=== PATIENT | female | born 1940 | race Caucasian/White ===

== ENCOUNTER 2017-01-15 14:45 | Emergency (ER) | payer MEDICARE, BC ==
--- NOTE | 2017-01-15 15:26 | ED ---
Headache HPI - General Chief Complaint: Headache Stated Complaint: Neck/Head pain Time Seen by Provider: 01/15/17 15:15 Source: patient Mode of arrival: ambulatory Limitations: no limitations - History of Present Illness Initial Comments: This is a 68-year-old female who states she's had one month of pain in her neck and radiates up into her head. It is sharp in nature with movement at 7-8/10 in severity at rest it's less than that. She also complains of some fullness her left facial region and inability to breathe out of her left nostril she also complains of a machinery type noise in her left ear. She denies any fevers chills nausea vomiting sweats or other symptoms at this time she has had lumbar surgery in the past. She denies any focal deficits to her upper or lower extremities any blurry vision. MD Complaint: headache, other - Related Data Home Medications Medication Instructions Recorded Confirmed ALPRAZolam [Xanax] 0.5 mg PO BID PRN 01/15/17 01/15/17 Baclofen [Lioresal] 5 mg PO TID PRN 01/15/17 01/15/17 Cetirizine HCl [Zyrtec] 10 mg PO DAILY PRN 01/15/17 01/15/17 Cholecalciferol [Vitamin D3] 1,000 unit PO DAILY 01/15/17 01/15/17 Citalopram Hydrobromide [CeleXA] 20 mg PO QAM 01/15/17 01/15/17 Citalopram Hydrobromide [CeleXA] 40 mg PO HS 01/15/17 01/15/17 Docusate [Colace] 100 mg PO BID 01/15/17 01/15/17 Famotidine [Pepcid] 40 mg PO HS 01/15/17 01/15/17 Fluticasone Nasal [place] [Flonase 2 spr EA NOSTRIL DAILY 01/15/17 01/15/17 Nasal [place]] Levothyroxine Sodium [Synthroid] 88 mcg PO QAM 01/15/17 01/15/17 [place]-3 Fatty Acids [[place]-3] 1,000 mg PO Q48H 01/15/17 01/15/17 Polyethylene Glycol 3350 [Miralax] 17 gm PO BID PRN 01/15/17 01/15/17 Previous Rx's Medication Instructions Recorded Ketorolac [Toradol] 10 mg PO Q6HR #20 tab 01/15/17 Allergies Allergy/AdvReac Type Severity Reaction Status Date / Time amoxicillin Allergy Anaphylaxis Verified 01/15/17 15:52 amylase [From Creon] AdvReac Constipatio Verified 01/15/17 15:52 n clindamycin [From Cleocin] AdvReac Constipatio Verified 01/15/17 15:52 n fenofibrate [From Tricor] AdvReac Constipatio Verified 01/15/17 15:52 n gabapentin AdvReac Vertigo Verified 01/15/17 15:52 lansoprazole [From Prevacid] AdvReac Diarrhea Verified 01/15/17 15:52 lipase [From Creon] AdvReac Constipatio Verified 01/15/17 15:52 n morphine AdvReac Nausea & Verified 01/15/17 15:52 Vomiting pantoprazole [From Protonix] AdvReac Constipatio Verified 01/15/17 15:52 n protease [From Creon] AdvReac Constipatio Verified 01/15/17 15:52 n rosuvastatin [From Crestor] AdvReac Muscle Pain Verified 01/15/17 15:52 tramadol [From Ultram] AdvReac Constipatio Verified 01/15/17 15:52 n Review of Systems ROS Statement: Those systems with pertinent positive or pertinent negative responses have been documented in the HPI. ROS Other: All systems not noted in ROS Statement are negative. Past Medical History Past Medical History: Fibromyalgia History of Any Multi-Drug Resistant Organisms: None Reported Past Psychological History: No Psychological Hx Reported Smoking Status: Never smoker Past Alcohol Use History: None Reported Past Drug Use History: None Reported General Exam - General Exam Comments Initial Comments: This is a well-developed well-nourished awake alert oriented 3 female Limitations: no limitations General appearance: alert, in no apparent distress Head exam: Present: atraumatic, normocephalic, normal inspection, other (No tenderness on palpation of the scalp) Eye exam: Present: normal appearance, PERRL, EOMI. Absent: scleral icterus, conjunctival injection, periorbital swelling ENT exam: Present: normal exam, mucous membranes moist, TM's normal bilaterally , other (Boggy swollen nasal mucosa) Neck exam: Present: normal inspection, tenderness (Paraspinous tenderness palpation no mid spinal tenderness.). Absent: meningismus, lymphadenopathy Respiratory exam: Present: normal lung sounds bilaterally. Absent: respiratory distress, wheezes, rales, rhonchi, stridor Cardiovascular Exam: Present: regular rate, normal rhythm, normal heart sounds. Absent: systolic murmur, diastolic murmur, rubs, gallop, clicks GI/Abdominal exam: Absent: distended, tenderness, guarding, rebound, rigid Extremities exam: Present: normal inspection, full ROM, normal capillary refill. Absent: tenderness, pedal edema, joint swelling, calf tenderness Back exam: Present: normal inspection Neurological exam: Present: alert, oriented X3, CN II-XII intact Psychiatric exam: Present: normal affect, normal mood Skin exam: Present: warm, dry, intact, normal color. Absent: rash Course Vital Signs 01/15/17 14:50 Temperature 97.2 F L Pulse Rate 78 Respiratory 20 Rate Blood Pressure 175/72 O2 Sat by Pulse 100 Oximetry Medical Decision Making - Medical Decision Making I did discuss the findings with the patient the family member that was present. The presentation is consistent with a radicular manifestation for her headache. She'll be placed on a short course of anti-inflammatories she is a follow-up with her doctor and return when necessary warm compresses were also recommended - Radiology Data Radiology results: report reviewed (I did review the imaging and reports evidence of degenerative change no acute findings on the CT of the head and sinuses. There is a deviated septum noted.), image reviewed Disposition Clinical Impression: Cervical radiculopathy, Headache Disposition: HOME SELF-CARE Condition: Good Instructions: Acute Headache (ED), Cervical Radiculopathy (ED), Neck Pain (ED) Prescriptions: Ketorolac [Toradol] 10 mg PO Q6HR #20 tab
--- NOTE | 2017-01-15 16:21 | CT ---
EXAMINATION TYPE: CT sinus wo con DATE OF EXAM: 01/15/2017 4:08 PM COMPARISON: NONE HISTORY: Pt states of congestion with head and neck pain. CT DLP: 1824.9 mGycm CONTRAST: None The paranasal sinuses are examined in the axial plane at 2 mm thick sections. Reconstructed images i n the coronal plane were obtained. There is dental amalgam scatter artifact The maxillary sinuses are clear. The ethmoid air cells are clear. The sphenoid sinuses are clear. The frontal sinuses are clear. The septum is evaluated. There is septal deviation to the right. Right septal spur is present. The ostiomeatal units are patent. There is a left erika bullosa. Maxillary spine appears intact. IMPRESSIONS: 1. No acute paranasal sinus abnormality. 2. Right septal deviation and spurring.
--- NOTE | 2017-01-15 16:25 | CT ---
EXAMINATION TYPE: CT brain cspine wo con DATE OF EXAM: 01/15/2017 4:08 PM COMPARISON: NONE HISTORY: Pt states of congestion with head and neck pain. CT DLP: 1824.9 mGycm, Automated exposure control for dose reduction was used. CONTRAST: None CT of the brain is performed utilizing 3 mm thick sections through the posterior fossa and 3 mm thick sections through the remaining calvarium. Study is performed within 24 hours of arrival to the hospital. No abnormal hyperdensity is present to suggest an acute intracranial hemorrhage. No mass lesion is evident. No acute infarcts are evident. Minimal periventricular white matter hypodensity may be present alan tible with microvascular ischemic changes. Ventricles and sulci are appropriate for the patient age. Paranasal sinuses and mastoid air cells within the [id number] are clear. IMPRESSIONS: 1. No acute intracranial process. CT cervical spine. COMPARISON: None CT of the cervical spine is performed in the axial plane at 2 mm thick sections. Reconstructed image s in the coronal, and sagittal plane are reviewed on the computer. No acute fractures are evident. Vertebral body alignment is normal. Disc heights are preserved. Vertebral body heights are preserved. No spinal canal stenosis is evident. C5-6 foraminal narrowing from uncovertebral joint hypertrophy as well as some facet hypertrophy is pr esent to a moderate degree. Some milder foraminal narrowing at C6-7 may be present. No acute osseous abnormality is evident. IMPRESSIONS: 1. Mild foraminal narrowing due to uncovertebral joint hypertrophy lower cervical spine
[2017-01-15 17:25] VITALS: BP 151/66; PULSE 61; RESP 18; TEMP 98.6
== END 2017-01-15 17:20 | disposition home or self-care (01) ==
LOC: EC 14:45
DX: M54.12 Radiculopathy, cervical region (principal); R51 Headache; M79.7 Fibromyalgia; Z79.51 Long term (current) use of inhaled steroids; Z79.899 Other long term (current) drug therapy; Z88.0 Allergy status to penicillin
CPT/HCPCS: 70450; 70486; 72125; 99284

== ENCOUNTER → 2017-03-02 | Outpatient (CLI) | payer MEDICARE, BC ==
--- NOTE | 2017-03-02 13:43 | CT ---
EXAMINATION TYPE: CT sinus wo con DATE OF EXAM: 03/02/2017 12:15 PM COMPARISON: NONE HISTORY: Chronic sinusitis CT DLP: 642.5 mGycm CONTRAST: 0 mL of Omnipaque 300 The paranasal sinuses are examined in the axial plane at 2 mm thick sections. Reconstructed images i n the coronal plane were obtained. The maxillary sinuses are clear. The ethmoid air cells are clear. The sphenoid sinuses are clear. The frontal sinuses are clear. The septum is evaluated. There is septal deviation to the right. The right septal spur is noted. Lef t erika bullosa is present. The ostiomeatal units are patent. Mild hyperostosis frontalis internus is present. IMPRESSIONS: 1. Septal deviation.
== END ==
LOC: RADCTMAIN 10:03
PROVIDERS: ATTEND Otolaryngology
DX: J34.2 Deviated nasal septum (principal)
CPT/HCPCS: 70486

== ENCOUNTER 2017-03-09 00:43 | Emergency (ER) | payer MEDICARE, BC ==
[2017-03-09 00:50] VITALS: RESP 18
--- NOTE | 2017-03-09 02:20 | ED ---
General Adult HPI - General Chief complaint: Nausea/Vomiting/Diarrhea Stated complaint: Poss Med Reaction Time Seen by Provider: 03/09/17 01:03 Source: patient, family, RN notes reviewed Mode of arrival: ambulatory Limitations: no limitations - History of Present Illness Initial comments: 76-year-old female presents to the emergency department with a chief complaint of medication side effect. Patient states that she started Valtrex today. Patient states that she's been having nausea. The patient does not know why she was placed on Valtrex. Patient states she hasn't had any fevers or chills. Patient denies any cough cold runny nose. Patient states just have nausea and her throat feels dry. Patient states she was concerned due to her symptoms so she thought that she should be evaluated.Patient denies any recent fever, chills, shortness of breath, chest pain, back pain, abdominal pain, vomiting, numbness or tingling, dysuria or hematuria, constipation or diarrhea, headaches or visual changes, or any other current symptoms. - Related Data Home Medications Medication Instructions Recorded Confirmed ALPRAZolam [Xanax] 0.5 mg PO BID PRN 01/15/17 03/09/17 Baclofen [Lioresal] 5 mg PO TID PRN 01/15/17 03/09/17 Cetirizine HCl [Zyrtec] 10 mg PO DAILY PRN 01/15/17 03/09/17 Cholecalciferol [Vitamin D3] 1,000 unit PO DAILY 01/15/17 03/09/17 Citalopram Hydrobromide [CeleXA] 20 mg PO QAM 01/15/17 03/09/17 Citalopram Hydrobromide [CeleXA] 40 mg PO HS 01/15/17 03/09/17 Docusate [Colace] 100 mg PO BID 01/15/17 03/09/17 Famotidine [Pepcid] 40 mg PO HS 01/15/17 03/09/17 Fluticasone Nasal [place] [Flonase 2 spr EA NOSTRIL DAILY 01/15/17 03/09/17 Nasal [place]] Levothyroxine Sodium [Synthroid] 88 mcg PO QAM 01/15/17 03/09/17 [place]-3 Fatty Acids [[place]-3] 1,000 mg PO Q48H 01/15/17 03/09/17 Polyethylene Glycol 3350 [Miralax] 17 gm PO BID PRN 01/15/17 03/09/17 valACYclovir HCL [Valtrex] 1,000 mg PO Q8HR 03/09/17 03/09/17 Previous Rx's Medication Instructions Recorded Ketorolac [Toradol] 10 mg PO Q6HR #20 tab 01/15/17 Allergies Allergy/AdvReac Type Severity Reaction Status Date / Time amoxicillin Allergy Anaphylaxis Verified 03/09/17 00:50 amylase [From Creon] AdvReac Constipatio Verified 03/09/17 00:50 n clindamycin [From Cleocin] AdvReac Constipatio Verified 03/09/17 00:50 n fenofibrate [From Tricor] AdvReac Constipatio Verified 03/09/17 00:50 n gabapentin AdvReac Vertigo Verified 03/09/17 00:50 lansoprazole [From Prevacid] AdvReac Diarrhea Verified 03/09/17 00:50 lipase [From Creon] AdvReac Constipatio Verified 03/09/17 00:50 n morphine AdvReac Nausea & Verified 03/09/17 00:50 Vomiting pantoprazole [From Protonix] AdvReac Constipatio Verified 03/09/17 00:50 n protease [From Creon] AdvReac Constipatio Verified 03/09/17 00:50 n rosuvastatin [From Crestor] AdvReac Muscle Pain Verified 03/09/17 00:50 tramadol [From Ultram] AdvReac Constipatio Verified 03/09/17 00:50 n Review of Systems ROS Statement: Those systems with pertinent positive or pertinent negative responses have been documented in the HPI. ROS Other: All systems not noted in ROS Statement are negative. Past Medical History Past Medical History: Fibromyalgia, Hyperlipidemia, Thyroid Disorder Additional Past Medical History / Comment(s): anxiety, neck History of Any Multi-Drug Resistant Organisms: None Reported Past Surgical History: Back Surgery Past Psychological History: Anxiety Smoking Status: Never smoker Past Alcohol Use History: Occasional Past Drug Use History: None Reported General Exam - General Exam Comments Initial Comments: General: The patient is awake and alert, in no distress, and does not appear acutely ill. Eye: Pupils are equal, round and reactive to light, extra-ocular movements are intact; there is normal conjunctiva bilaterally. No signs of icterus. Ears, nose, mouth and throat: There are moist mucous membranes. Neck: The neck is supple, there is no tenderness. Cardiovascular: There is a regular rate and rhythm. No murmur, rub or gallop is appreciated. Respiratory: Lungs are clear to auscultation, respirations are non-labored, breath sounds are equal. No wheezes, stridor, rales, or rhonchi. Gastrointestinal: Soft, non-distended, non-tender abdomen without masses or organomegaly noted. There is no rebound or guarding present. No CVA tenderness. Bowel sounds are unremarkable. Back: There is no tenderness to palpation in the midline. There is no obvious deformity. No rashes noted. Musculoskeletal: Normal ROM, no tenderness, There is no pedal edema. There is no calf tenderness or swelling. Sensation intact. Pulses equal bilaterally 2+. Neurological: CN II-XII intact, There are no obvious motor or sensory deficits. Coordination appears grossly intact. Speech is normal. Skin: Skin is warm and dry and no rashes or lesions are noted. Psychiatric: Cooperative, appropriate mood & affect, normal judgment. Limitations: no limitations Course Vital Signs 03/09/17 00:46 Temperature 97 F L Pulse Rate 70 Respiratory 18 Rate Blood Pressure 183/88 O2 Sat by Pulse 99 Oximetry - Reevaluation(s) Reevaluation #1: 03/09/17 03:43 Patient is feeling better at this time. EKG Findings - EKG Comments: EKG Findings:: normal sinus rhythm 63 bpm, normal axis, no atopy, no S-T depressions or elevations, Medical Decision Making - Medical Decision Making 76-year-old male presents emergency Department what appears to be a medication side effect. This time we did draw other possibilities of causing the patient' s nausea did do appear to be negative. At this time we discussed patient's most likely having nausea which is a side effect with Valtrex. Cannot" reason for why the patient is on the Valtrex. We discussed that she needs to call her doctor and confirm that she should be taking this medication. We discussed return parameters and follow-up. Patient stated that she understood all questions have been answered. She will be discharged. - Lab Data Result diagrams: 03/09/17 02:10 03/09/17 02:10 Lab Results 04/03/09/17 03/09/17 Range/Units 02:10 02:10 02:10 WBC 4.0 (3.8-10.6) k/uL RBC 3.67 L (3.80-5.40) m/uL Hgb 11.3 L (11.4-16.0) gm/dL Hct 33.2 L (34.0-46.0) % MCV 90.5 (80.0-100.0) fL MCH 30.8 (25.0-35.0) pg MCHC 34.0 (31.0-37.0) g/dL RDW 12.8 (11.5-15.5) % Plt Count 228 (150-450) k/uL Neutrophils % (Manual) 37.0 % Lymphocytes % (Manual) 53.0 % Monocytes % (Manual) 7.0 % Eosinophils % (Manual) 2.0 % Basophils % (Manual) 1.0 % Neutrophils # (Manual) 1.5 (1.3-7.7) k/uL Lymphocytes # (Manual) 2.1 (1.0-4.8) k/uL Monocytes # (Manual) 0.3 (0-1.0) k/uL Eosinophils # (Manual) 0.1 (0-0.7) k/uL Basophils # (Manual) 0.0 (0-0.2) k/uL Nucleated RBCs 0 (0-0) /100 WBC Manual Slide Review Performed PT (9.0-12.0) sec INR (<1.1) APTT (22.0-30.0) sec Sodium 127 L (137-145) mmol/L Potassium 4.5 (3.5-5.1) mmol/L Chloride 97 L (98-107) mmol/L Carbon Dioxide 20 L (22-30) mmol/L Anion Gap 10 mmol/L BUN 15 (7-17) mg/dL Creatinine 0.70 (0.52-1.04) mg/dL Est GFR (MDRD) Af Amer >60 (>60 ml/min/1.73 sqM) Est GFR (MDRD) Non-Af >60 (>60 ml/min/1.73 sqM) Glucose 101 H (74-99) mg/dL Calcium 9.3 (8.4-10.2) mg/dL Magnesium 1.8 (1.6-2.3) mg/dL Total Bilirubin 0.4 (0.2-1.3) mg/dL AST 79 H (14-36) U/L ALT 116 H (9-52) U/L Alkaline Phosphatase 157 H (38-126) U/L Total Creatine Kinase 74 (30-135) U/L CK-MB (CK-2) 1.5 (0.0-2.4) ng/mL CK-MB (CK-2) Rel Index 2.0 Troponin I <0.012 (0.000-0.034) ng/mL Total Protein 7.0 (6.3-8.2) g/dL Albumin 4.2 (3.5-5.0) g/dL 03/09/17 Range/Units 02:10 WBC (3.8-10.6) k/uL RBC (3.80-5.40) m/uL Hgb (11.4-16.0) gm/dL Hct (34.0-46.0) % MCV (80.0-100.0) fL MCH (25.0-35.0) pg MCHC (31.0-37.0) g/dL RDW (11.5-15.5) % Plt Count (150-450) k/uL Neutrophils % (Manual) % Lymphocytes % (Manual) % Monocytes % (Manual) % Eosinophils % (Manual) % Basophils % (Manual) % Neutrophils # (Manual) (1.3-7.7) k/uL Lymphocytes # (Manual) (1.0-4.8) k/uL Monocytes # (Manual) (0-1.0) k/uL Eosinophils # (Manual) (0-0.7) k/uL Basophils # (Manual) (0-0.2) k/uL Nucleated RBCs (0-0) /100 WBC Manual Slide Review PT 10.5 (9.0-12.0) sec INR 1.0 (<1.1) APTT 25.3 (22.0-30.0) sec Sodium (137-145) mmol/L Potassium (3.5-5.1) mmol/L Chloride (98-107) mmol/L Carbon Dioxide (22-30) mmol/L Anion Gap mmol/L BUN (7-17) mg/dL Creatinine (0.52-1.04) mg/dL Est GFR (MDRD) Af Amer (>60 ml/min/1.73 sqM) Est GFR (MDRD) Non-Af (>60 ml/min/1.73 sqM) Glucose (74-99) mg/dL Calcium (8.4-10.2) mg/dL Magnesium (1.6-2.3) mg/dL Total Bilirubin (0.2-1.3) mg/dL AST (14-36) U/L ALT (9-52) U/L Alkaline Phosphatase (38-126) U/L Total Creatine Kinase (30-135) U/L CK-MB (CK-2) (0.0-2.4) ng/mL CK-MB (CK-2) Rel Index Troponin I (0.000-0.034) ng/mL Total Protein (6.3-8.2) g/dL Albumin (3.5-5.0) g/dL Disposition Clinical Impression: Medication side effect, Anemia, Elevated liver enzymes, Hyponatremia Disposition: HOME SELF-CARE Condition: Stable Instructions: Valacyclovir (By mouth) Additional Instructions: Please use medication as discussed. Please follow up with family doctor if symptoms have not improved over the next two days. Please return to the emergency room if your symptoms increase or worsen or for any other concerns. Referrals: Jaydon Mann MD [Primary Care Provider] - 1-2 days Time of Disposition: 03:43
[2017-03-09 02:23] LABS: Aty Lym Flag Slight; CH 31.3; CHCM 34.8; HCT 33.2 % (34.0-46.0); HGB 11.3 gm/dL (11.4-16.0); MCH 30.8 pg (25.0-35.0); MCV 90.5 fL (80.0-100.0); Mean Platelet Volume 6.9; RBC 3.67 m/uL (3.80-5.40); RDW 12.8 % (11.5-15.5); WBC (Perox) 3.83
[2017-03-09 02:32] LABS: Partial Thromboplastin Time 25.3 sec (22.0-30.0); Prothrombin Time 10.5 sec (9.0-12.0)
[2017-03-09 02:33] LABS: ALT 116 U/L (9-52); AST 79 U/L (14-36); Alkaline Phosphatase 157 U/L (38-126); Anion Gap 10 mmol/L; Blood Urea Nitrogen 15 mg/dL (7-17); Calcium 9.3 mg/dL (8.4-10.2); Carbon Dioxide 20 mmol/L (22-30); Chloride 97 mmol/L (98-107); Glucose 101 mg/dL (74-99); Magnesium 1.8 mg/dL (1.6-2.3); Non-African American GFR(MDRD) >60 (>60 ml/min/1.73 sqM); Potassium 4.5 mmol/L (3.5-5.1); Sodium 127 mmol/L (137-145); Total Bilirubin 0.4 mg/dL (0.2-1.3)
[2017-03-09 02:42] LABS: Creatine Kinase 74 U/L (30-135)
--- NOTE | 2017-03-09 02:59 | XR ---
EXAM: XR Chest, 2 Views CLINICAL HISTORY: Reason: Chest Pain TECHNIQUE: Frontal and lateral views of the chest. COMPARISON: No relevant prior studies available. FINDINGS: Lungs: Unremarkable. No consolidation. Pleural space: Unremarkable. No pneumothorax. Heart: Unremarkable. No cardiomegaly. Mediastinum: Unremarkable. Bones/joints: Multilevel degenerative disc changes. Osteopenia. IMPRESSION: No acute findings.
[2017-03-09 03:09] LABS: Add Differential Manual Differential
[2017-03-09 03:13] LABS: Creatine Kinase MB 1.5 ng/mL (0.0-2.4); Troponin I <0.012 ng/mL (0.000-0.034)
[2017-03-09 03:14] LABS: Manual Review Performed; Nucleated Red Blood Cells 0 /100 WBC (0-0); Total Cells Counted 100
[2017-03-09 04:00] VITALS: BP 144/69; PULSE 80; TEMP 98
== END 2017-03-09 04:00 | disposition home or self-care (01) ==
LOC: EC 00:43
DX: D64.9 Anemia, unspecified (principal); E87.1 Hypo-osmolality and hyponatremia; T37.5X5A Adverse effect of antiviral drugs, initial encounter; E07.9 Disorder of thyroid, unspecified; F41.9 Anxiety disorder, unspecified; Z79.899 Other long term (current) drug therapy; Z88.0 Allergy status to penicillin; Z88.5 Allergy status to narcotic agent; Z88.6 Allergy status to analgesic agent; Z88.8 Allergy status to other drugs, medicaments and biological substances
CPT/HCPCS: 36415; 71020; 80053; 82550; 82553; 83735; 84484; 85025; 85610; 85730; 93005; 99283

== ENCOUNTER → 2017-04-12 | Outpatient (CLI) | payer MEDICARE, BC ==
[2017-04-12 12:52] LABS: ALT 23 U/L (9-52); AST 23 U/L (14-36)
== END | disposition home or self-care (01) ==
LOC: LABWHC1 12:04
PROVIDERS: ATTEND Psychiatry & Neurology Neurology
DX: Z51.81 Encounter for therapeutic drug level monitoring (principal); Z79.899 Other long term (current) drug therapy
CPT/HCPCS: 36415; 84450; 84460

== ENCOUNTER → 2017-05-28 | Outpatient (CLI) | payer MEDICARE, BC | END | disposition home or self-care (01) | LOC: RADUSMAIN 14:58 | PROVIDERS: ATTEND Anesthesiology | DX: I73.9 Peripheral vascular disease, unspecified (principal) | CPT/HCPCS: 93923 ==

== ENCOUNTER → 2017-08-30 | Outpatient (CLI) | payer MEDICARE, BC ==
--- NOTE | 2017-08-30 11:54 | FL ---
EXAMINATION TYPE: FL barium swallow DATE OF EXAM: 08/30/2017 CLINICAL HISTORY: Dysphasia TECHNIQUE: A single contrast esophagram is performed utilizing air and barium. A total of 90 second s of fluoroscopic time was utilized during procedure. 7 images submitted. COMPARISON: None FINDINGS: The esophagus shows normal motility and emptying into the stomach. Small hiatal hernia note d with no evidence of stricture. No significant gastroesophageal reflux was seen during real time per formance of this study. IMPRESSION: 1. Small hiatal hernia with mild gastroesophageal reflux.
== END | disposition home or self-care (01) ==
LOC: RADFLWHC 10:41
PROVIDERS: ATTEND Pediatrics
DX: K21.9 Gastro-esophageal reflux disease without esophagitis (principal); K44.9 Diaphragmatic hernia without obstruction or gangrene; R13.10 Dysphagia, unspecified
CPT/HCPCS: 74220

== ENCOUNTER 2018-03-29 13:36 | Inpatient (IN) | payer MEDICARE, BC ==
[2018-03-29] MEDS ORDERED: SODIUM CHLORIDE 0.9% 1,000 ML IV ONE (13:44)
[2018-03-29] MEDS ORDERED: SODIUM CHLORIDE 0.9% 500 ML IV ONE (13:44)
[2018-03-29 14:07] LABS: Basophils % (A) 0 %; Eosinophils # (A) 0.1 k/uL (0-0.7); Eosinophils % (A) 1 %; HCT 34.2 % (34.0-46.0); HGB 11.8 gm/dL (11.4-16.0); Lymphocytes # (A) 0.6 k/uL (1.0-4.8); Lymphocytes % (A) 8 %; MCH 31.3 pg (25.0-35.0); MCHC 34.6 g/dL (31.0-37.0); MCV 90.7 fL (80.0-100.0); Mean Platelet Volume 7.5; Monocytes # (A) 0.3 k/uL (0-1.0); Monocytes % (A) 4 %; Neutrophils # (A) 6.7 k/uL (1.3-7.7); Neutrophils % (A) 87 %; Platelet Count 335 k/uL (150-450); RBC 3.77 m/uL (3.80-5.40); RDW 12.9 % (11.5-15.5); WBC 7.8 k/uL (3.8-10.6)
--- NOTE | 2018-03-29 14:09 | ED ---
Altered Mental Status HPI - General Chief Complaint: Altered Mental Status Stated Complaint: Weakness Time Seen by Provider: 03/29/18 13:36 Source: patient, RN notes reviewed Mode of arrival: EMS Limitations: no limitations, altered mental status - History of Present Illness Initial Comments: This is a 77-year-old female who is brought in by EMS for evaluation of some confusion also complains some left upper quadrant pain she paranasal 718 and drinking since yesterday also not taking her meds she states the medications were not correct. She denies any fevers chills sweats or other symptoms. Per paramedics patient was reported to be confused for them she was a and O 4 MD Complaint: confusion, other - Related Data Home Medications Medication Instructions Recorded Confirmed ALPRAZolam [Xanax] 0.5 mg PO BID PRN 01/15/17 03/09/17 Baclofen [Lioresal] 5 mg PO TID PRN 01/15/17 03/09/17 Cetirizine HCl [Zyrtec] 10 mg PO DAILY PRN 01/15/17 03/09/17 Cholecalciferol [Vitamin D3] 1,000 unit PO DAILY 01/15/17 03/09/17 Citalopram Hydrobromide [CeleXA] 20 mg PO QAM 01/15/17 03/09/17 Citalopram Hydrobromide [CeleXA] 40 mg PO HS 01/15/17 03/09/17 Docusate [Colace] 100 mg PO BID 01/15/17 03/09/17 Famotidine [Pepcid] 40 mg PO HS 01/15/17 03/09/17 Fluticasone Nasal [place] [Flonase 2 spr EA NOSTRIL DAILY 01/15/17 03/09/17 Nasal [place]] Levothyroxine Sodium [Synthroid] 88 mcg PO QAM 01/15/17 03/09/17 [place]-3 Fatty Acids [[place]-3] 1,000 mg PO Q48H 01/15/17 03/09/17 Polyethylene Glycol 3350 [Miralax] 17 gm PO BID PRN 01/15/17 03/09/17 valACYclovir HCL [Valtrex] 1,000 mg PO Q8HR 03/09/17 03/09/17 Previous Rx's Medication Instructions Recorded Ketorolac [Toradol] 10 mg PO Q6HR #20 tab 01/15/17 Allergies Allergy/AdvReac Type Severity Reaction Status Date / Time amoxicillin Allergy Anaphylaxis Verified 03/29/18 13:48 amylase [From Creon] AdvReac Constipatio Verified 03/29/18 13:48 n clindamycin [From Cleocin] AdvReac Constipatio Verified 03/29/18 13:48 n fenofibrate [From Tricor] AdvReac Constipatio Verified 03/29/18 13:48 n gabapentin AdvReac Vertigo Verified 03/29/18 13:48 lansoprazole [From Prevacid] AdvReac Diarrhea Verified 03/29/18 13:48 lipase [From Creon] AdvReac Constipatio Verified 03/29/18 13:48 n morphine AdvReac Nausea & Verified 03/29/18 13:48 Vomiting pantoprazole [From Protonix] AdvReac Constipatio Verified 03/29/18 13:48 n protease [From Creon] AdvReac Constipatio Verified 03/29/18 13:48 n rosuvastatin [From Crestor] AdvReac Muscle Pain Verified 03/29/18 13:48 tramadol [From Ultram] AdvReac Constipatio Verified 03/29/18 13:48 n Review of Systems ROS Statement: Those systems with pertinent positive or pertinent negative responses have been documented in the HPI. ROS Other: All systems not noted in ROS Statement are negative. Past Medical History Past Medical History: Fibromyalgia, GERD/Reflux, Hyperlipidemia, Thyroid Disorder Additional Past Medical History / Comment(s): anxiety, neck, "memory loss", degenerative disk disease, hearing loss, fibromyalgia, dysphagia, hypothyroid History of Any Multi-Drug Resistant Organisms: None Reported Past Surgical History: Back Surgery Past Psychological History: Anxiety Smoking Status: Never smoker Past Alcohol Use History: Occasional Past Drug Use History: None Reported General Exam - General Exam Comments Initial Comments: This is a well-developed well-nourished awake alert female Limitations: no limitations, altered mental status General appearance: alert, in no apparent distress Head exam: Present: atraumatic, normocephalic, normal inspection Eye exam: Present: normal appearance, PERRL, EOMI. Absent: scleral icterus, conjunctival injection, periorbital swelling ENT exam: Present: mucous membranes dry Neck exam: Present: normal inspection. Absent: tenderness, meningismus, lymphadenopathy Respiratory exam: Present: normal lung sounds bilaterally, other (She does demonstrate kyphosis) Cardiovascular Exam: Present: regular rate, normal rhythm, normal heart sounds. Absent: systolic murmur, diastolic murmur, rubs, gallop, clicks GI/Abdominal exam: Present: soft, normal bowel sounds. Absent: distended, tenderness, guarding, rebound, rigid Extremities exam: Present: full ROM, normal capillary refill, pedal edema. Absent: tenderness, calf tenderness Back exam: Present: full ROM, other (Ecchymosis is noted). Absent: tenderness, CVA tenderness (R), CVA tenderness (L), muscle spasm, paraspinal tenderness, vertebral tenderness, rash noted Neurological exam: Present: alert, oriented X3, CN II-XII intact Psychiatric exam: Present: normal affect, normal mood Skin exam: Present: warm, dry, intact, normal color. Absent: rash Course Vital Signs 03/29/18 13:38 Temperature 99.5 F Pulse Rate 90 Respiratory 18 Rate Blood Pressure 155/71 O2 Sat by Pulse 100 Oximetry - Reevaluation(s) Reevaluation #1: 03/29/18 14:18 Repeat EKG shows sinus rhythm of 95 with PACs WV interval 144 QRS duration 70 QT since QTC of 376/[address]-T wave configuration Reevaluation #2: 03/29/18 17:12 I did reevaluate patient several occasions no changes Medical Decision Making - Medical Decision Making Patient is awake and alert at this time her neighbors presently did initially find her she was having issues with some memory and confusion which seems to of resolved. It is unclear whether this is probably secondary to dehydration or if there was a TIA. Patient be admitted for evaluation - Lab Data Result diagrams: 03/29/18 13:55 03/29/18 15:55 Lab Results 03/29/18 03/29/18 03/29/18 Range/Units 13:55 13:55 14:19 WBC 7.8 (3.8-10.6) k/uL RBC 3.77 L (3.80-5.40) m/uL Hgb 11.8 (11.4-16.0) gm/dL Hct 34.2 (34.0-46.0) % MCV 90.7 (80.0-100.0) fL MCH 31.3 (25.0-35.0) pg MCHC 34.6 (31.0-37.0) g/dL RDW 12.9 (11.5-15.5) % Plt Count 335 (150-450) k/uL Neutrophils % 87 % Lymphocytes % 8 % Monocytes % 4 % Eosinophils % 1 % Basophils % 0 % Neutrophils # 6.7 (1.3-7.7) k/uL Lymphocytes # 0.6 L (1.0-4.8) k/uL Monocytes # 0.3 (0-1.0) k/uL Eosinophils # 0.1 (0-0.7) k/uL Basophils # 0.0 (0-0.2) k/uL PT 11.2 (9.0-12.0) sec INR 1.2 H (<1.2) APTT 24.6 (22.0-30.0) sec Sodium (137-145) mmol/L Potassium (3.5-5.1) mmol/L Chloride (98-107) mmol/L Carbon Dioxide (22-30) mmol/L Anion Gap mmol/L BUN (7-17) mg/dL Creatinine (0.52-1.04) mg/dL Est GFR (CKD-EPI)AfAm (>60 ml/min/1.73 sqM) Est GFR (CKD-EPI)NonAf (>60 ml/min/1.73 sqM) Glucose (74-99) mg/dL POC Glucose (mg/dL) 133 H (75-99) mg/dL POC Glu Copy Room Technician ID ShawnpRicardo Calcium (8.4-10.2) mg/dL Magnesium (1.6-2.3) mg/dL Total Bilirubin (0.2-1.3) mg/dL AST (14-36) U/L ALT (9-52) U/L Alkaline Phosphatase (38-126) U/L Total Creatine Kinase (30-135) U/L CK-MB (CK-2) (0.0-2.4) ng/mL CK-MB (CK-2) Rel Index Troponin I (0.000-0.034) ng/mL Total Protein (6.3-8.2) g/dL Albumin (3.5-5.0) g/dL TSH (0.465-4.680) mIU/L Urine Color Urine Appearance (Clear) Urine pH (5.0-8.0) Ur Specific [place] (1.001-1.035) Urine Protein (Negative) Urine Glucose (UA) (Negative) Urine Ketones (Negative) Urine Blood (Negative) Urine Nitrite (Negative) Urine Bilirubin (Negative) Urine Urobilinogen (<2.0) mg/dL Ur Leukocyte Esterase (Negative) Urine RBC (0-5) /hpf Urine WBC (0-5) /hpf Ur Squamous Epith Cells (0-4) /hpf Urine Bacteria (None) /hpf Hyaline Casts (0-2) /lpf Urine Mucus (None) /hpf Urine Opiates Screen (NotDetected) Ur Oxycodone Screen (NotDetected) Urine Methadone Screen (NotDetected) Ur Propoxyphene Screen (NotDetected) Ur Barbiturates Screen (NotDetected) U Tricyclic Antidepress (NotDetected) Ur Phencyclidine Scrn (NotDetected) Ur Amphetamines Screen (NotDetected) U Methamphetamines Scrn (NotDetected) U Benzodiazepines Scrn (NotDetected) Urine Cocaine Screen (NotDetected) U Marijuana (THC) Screen (NotDetected) 03/29/18 03/29/18 03/29/18 Range/Units 14:29 15:55 15:55 WBC (3.8-10.6) k/uL RBC (3.80-5.40) m/uL Hgb (11.4-16.0) gm/dL Hct (34.0-46.0) % MCV (80.0-100.0) fL MCH (25.0-35.0) pg MCHC (31.0-37.0) g/dL RDW (11.5-15.5) % Plt Count (150-450) k/uL Neutrophils % % Lymphocytes % % Monocytes % % Eosinophils % % Basophils % % Neutrophils # (1.3-7.7) k/uL Lymphocytes # (1.0-4.8) k/uL Monocytes # (0-1.0) k/uL Eosinophils # (0-0.7) k/uL Basophils # (0-0.2) k/uL PT (9.0-12.0) sec INR (<1.2) APTT (22.0-30.0) sec Sodium 143 (137-145) mmol/L Potassium 4.4 (3.5-5.1) mmol/L Chloride 106 (98-107) mmol/L Carbon Dioxide 19 L (22-30) mmol/L Anion Gap 18 mmol/L BUN 34 H (7-17) mg/dL Creatinine 1.70 H (0.52-1.04) mg/dL Est GFR (CKD-EPI)AfAm 33 (>60 ml/min/1.73 sqM) Est GFR (CKD-EPI)NonAf 28 (>60 ml/min/1.73 sqM) Glucose 105 H (74-99) mg/dL POC Glucose (mg/dL) (75-99) mg/dL POC Glu Copy Room Technician ID Calcium 9.3 (8.4-10.2) mg/dL Magnesium 2.1 (1.6-2.3) mg/dL Total Bilirubin 0.4 (0.2-1.3) mg/dL AST 35 (14-36) U/L ALT 34 (9-52) U/L Alkaline Phosphatase 75 (38-126) U/L Total Creatine Kinase 305 H (30-135) U/L CK-MB (CK-2) 4.2 H* (0.0-2.4) ng/mL CK-MB (CK-2) Rel Index 1.4 Troponin I 0.020 (0.000-0.034) ng/mL Total Protein 6.4 (6.3-8.2) g/dL Albumin 4.1 (3.5-5.0) g/dL TSH 2.890 (0.465-4.680) mIU/L Urine Color Yellow Urine Appearance Cloudy H (Clear) Urine pH 5.0 (5.0-8.0) Ur Specific [place] 1.015 (1.001-1.035) Urine Protein 1+ H (Negative) Urine Glucose (UA) Negative (Negative) Urine Ketones 1+ H (Negative) Urine Blood Small H (Negative) Urine Nitrite Negative (Negative) Urine Bilirubin 1+ H (Negative) Urine Urobilinogen <2.0 (<2.0) mg/dL Ur Leukocyte Esterase Large H (Negative) Urine RBC 8 H (0-5) /hpf Urine WBC 114 H (0-5) /hpf Ur Squamous Epith Cells 3 (0-4) /hpf Urine Bacteria Few H (None) /hpf Hyaline Casts 257 H (0-2) /lpf Urine Mucus Few H (None) /hpf Urine Opiates Screen Not Detected (NotDetected) Ur Oxycodone Screen Not Detected (NotDetected) Urine Methadone Screen Not Detected (NotDetected) Ur Propoxyphene Screen Not Detected (NotDetected) Ur Barbiturates Screen Not Detected (NotDetected) U Tricyclic Antidepress Not Detected (NotDetected) Ur Phencyclidine Scrn Not Detected (NotDetected) Ur Amphetamines Screen Not Detected (NotDetected) U Methamphetamines Scrn Not Detected (NotDetected) U Benzodiazepines Scrn Detected H (NotDetected) Urine Cocaine Screen Not Detected (NotDetected) U Marijuana (THC) Screen Not Detected (NotDetected) - EKG Data -: EKG Interpreted by Me EKG shows normal: sinus rhythm (Sinus rhythm with with a rate of 89 WV interval 142 QRS 74 QT since QTC 380/472 minimal voltage criteria for LVH some artifact is present) - Radiology Data Radiology results: report reviewed (I did review the imaging and reports no acute findings.), image reviewed Critical Care Time Critical Care Time: Yes Critical Care Time: 31 minutes of critical care time which was initial presentation with monitoring of the EMS run and discussed with paramedics history physical labs x-rays multiple re-evaluations patient discussion with the patient and her neighbor who was present discussed with the admitting physician admission orders and documentation of the above Disposition Clinical Impression: TIA (transient ischemic attack), Delirium due to general medical condition, Dehydration, Pyuria, Altered mental status Disposition: ADMITTED IP TO THIS [facility] Condition: Stable Referrals: Jaydon Mann MD [Primary Care Provider] - 1-2 days
[2018-03-29 14:37] LABS: Glucose,Whole Blood 133 mg/dL (75-99)
[2018-03-29 14:37] LABS: INR 1.2 (<1.2); Partial Thromboplastin Time 24.6 sec (22.0-30.0); Prothrombin Time 11.2 sec (9.0-12.0)
[2018-03-29 14:51] LABS: Appearance,Urine Cloudy (Clear); Bacteria,Urine Few /hpf; Bilirubin,Urine 1+ (Negative); Blood,Urine Small (Negative); Color,Urine Yellow; Glucose,Urine (UA) Negative (Negative); Hyaline Casts,Urine 257 /lpf (0-2); Ketones,Urine 1+ (Negative); Leukocyte Esterase,Urine Large (Negative); Mucus,Urine Few /hpf; Nitrite,Urine Negative (Negative); Protein,Urine 1+ (Negative); RBC,Urine 8 /hpf (0-5); Specific Gravity,Urine 1.015 (1.001-1.035); Squamous Epithelial Cell,Urine 3 /hpf (0-4); Urobilinogen,Urine <2.0 mg/dL (<2.0); WBC,Urine 114 /hpf (0-5)
[2018-03-29 14:54] LABS: Amphetamine Screen,Urine Not Detected (NotDetected); Benzodiazepines Screen,Urine Detected (NotDetected); Cocaine Screen,Urine Not Detected (NotDetected); Opiate Screen,Urine Not Detected (NotDetected); Phencyclidine Screen,Urine Not Detected (NotDetected); Urn Cannabinoid Scrn Not Detected (NotDetected)
[2018-03-29 14:55] LABS: Barbiturate Screen,Urine Not Detected (NotDetected); Methadone Screen, Urine Not Detected (NotDetected); Oxycodone Screen, Urine Not Detected (NotDetected); Tricyclic Antidepressant,Urine Not Detected (NotDetected)
--- NOTE | 2018-03-29 15:31 | CT ---
EXAMINATION TYPE: CT brain wo con DATE OF EXAM: 03/29/2018 COMPARISON: Prior head CT 01/15/2017 HISTORY: Confusion and weakness CT DLP: 1162.8 mGycm Automated exposure control for dose reduction was used. Helical imaging through the brain FINDINGS: No interval change. There is no hemorrhage or hydrocephalus. Cerebral vascular calcifications are pre sent. IMPRESSION: STABLE EXAM, NO ACUTE ABNORMALITY.
--- NOTE | 2018-03-29 15:41 | XR ---
EXAMINATION TYPE: XR chest 2V DATE OF EXAM: 03/29/2018 COMPARISON: Prior chest x-ray 03/09/2017 HISTORY: Altered mental status TECHNIQUE: Frontal and lateral views of the chest are obtained. FINDINGS: Patient is rotated. There are overlying cardiac leads. Heart size may be accentuated by te chnique. No evident pneumonia, pneumothorax, or pleural effusion. IMPRESSION: No acute cardiopulmonary process.
[2018-03-29 16:26] LABS: Albumin 4.1 g/dL (3.5-5.0); Calcium 9.3 mg/dL (8.4-10.2); Magnesium 2.1 mg/dL (1.6-2.3); Potassium 4.4 mmol/L (3.5-5.1); Total Bilirubin 0.4 mg/dL (0.2-1.3); Total Protein 6.4 g/dL (6.3-8.2)
[2018-03-29 16:37] LABS: Troponin I 0.02 ng/mL (0.000-0.034)
[2018-03-29 16:41] LABS: Creatine Kinase MB 4.2 ng/mL (0.0-2.4)
[2018-03-29] MEDS ORDERED: SODIUM CHLORIDE 0.9% 1,000 ML IV SCH (17:15)
[2018-03-29] MEDS ORDERED: cefTRIAXone IN SWFI 1,000 MG/10 ML SYRINGE IVP STA (17:19)
[2018-03-29] MEDS ORDERED: LORATADINE 10 MG TAB PO PRN (17:21)
[2018-03-29] MEDS ORDERED: BACLOFEN 10 MG TAB PO PRN (17:21)
[2018-03-29] MEDS ORDERED: NON-FORMULARY DRUG (Ketorolac 10 MG) PO SCH (18:00)
[2018-03-29 20:14] LABS: Glucose,Whole Blood 124 mg/dL (75-99)
[2018-03-29 22:11] VITALS: BMI 24.3
[2018-03-29] MEDS: FAMOTIDINE 20 MG TAB PO SCH (22:15)
[2018-03-29] MEDS: CITALOPRAM HYDROBROMIDE 20 MG TAB PO SCH (22:16)
[2018-03-29] MEDS ORDERED: POLYETHYLENE GLYCOL 3350 17 GM POWD.PACK PO PRN (23:16)
[2018-03-29] MEDS ORDERED: traMADol 50 MG TAB PO PRN (23:16)
[2018-03-29] MEDS: ALPRAZolam 0.5 MG TAB PO PRN (23:29)
[2018-03-29] MEDS ORDERED: ALPRAZolam 0.25 MG TAB PO PRN (23:32)
[2018-03-29] MEDS ORDERED: CALCIUM CARBONATE 500 MG CHEWABLE PO PRN (23:32)
[2018-03-29] MEDS ORDERED: NALOXONE 0.4 MG/ML 1 ML VIAL IV PRN (23:32)
[2018-03-29] MEDS ORDERED: MELATONIN 3 MG TABLET PO PRN (23:32)
[2018-03-29] MEDS ORDERED: ACETAMINOPHEN TAB 325 MG TAB PO PRN (23:32)
[2018-03-29] MEDS ORDERED: ONDANSETRON 4 MG/2 ML VIAL IVP PRN (23:32)
[2018-03-30] MEDS: GABAPENTIN 100 MG CAP PO SCH ×2 (00:23→21:29)
[2018-03-30] MEDS: SODIUM BICARBONATE TAB 650 MG TAB PO SCH ×4 (00:26→21:39)
[2018-03-30] MEDS: METOPROLOL TARTRATE 25 MG TAB PO SCH ×3 (00:27→21:39)
[2018-03-30] MEDS: LEVOTHYROXINE 88 MCG TAB PO SCH (06:19)
--- NOTE | 2018-03-30 06:32 | HP ---
HISTORY AND PHYSICAL DATE OF ADMISSION: 03/29/18 DATE OF SERVICE: 03/29/18. PRESENTING COMPLAINT: Weak, tired. HISTORY OF PRESENTING COMPLAINT: This is a very pleasant 37-year-old patient of Dr. Mann. Chronic stable medical conditions include fibromyalgia, GERD, hypertension, hypothyroid, anxiety. The patient presented for 3 days, feeling really weak, decreased appetite, tired, run down. The patient has some urinary frequency, found to have a roaring UTI in the ER, was given a dose of IV ceftriaxone. Denies any obvious fever. Patient also being worked up by Dr. Singh in the outpatient setting for vascular disease, but the patient did have a vascular study done by Dr. Dsouza and the patient seems to have a good vascular circulation. The patient does complain of numbness below the knee down to the feet. Some tenderness, tingling. REVIEW OF SYSTEMS: Constitutional: Tired. HEENT none. Respiratory none. Cardiovascular none. Gastrointestinal none. Genitourinary: Some incontinence. Dermatological as above. Lymphatics none. Psychiatry: Sometimes forgetful. Neurological as above. PAST MEDICAL HISTORY: Fibromyalgia, GERD, hyperlipidemia, rheumatoid arthritis, hypothyroid, anxiety, some memory loss, hearing loss, hypothyroid. PAST SURGICAL HISTORY: Back surgery. SOCIAL HISTORY: No smoking. Alcohol occasionally. Is a . Uses a cane. FAMILY HISTORY: Reviewed, noncontributory to presentation. HOME MEDICATIONS: 1. Singulair 10 mg daily. 2. Mucinex 600 mg p.o. b.i.d. p.r.n. 3. Synthroid 88 mcg a day. 4. Pepcid 40 mg q.h.s. 5. Celexa 20 mg in the morning, 40 at night. 6. MiraLAX 17 g b.i.d. p.r.n. 7. [place] 1 drop both eyes daily. 8. Vitamin D3 1000 units p.o. daily. 9. Zyrtec 10 mg p.o. daily p.r.n. 10.Tylenol 650 mg p.o. q.6h p.r.n. 11.Xanax 0.5 p.o. b.i.d. p.r.n. 12.Ultram 50 mg p.o. q.12 p.r.n. 13.Lasix 20 mg b.i.d. 14.Flonase 1 spray each nostril b.i.d. 15.Baclofen 10 mg p.o. t.i.d. p.r.n. ALLERGIES: AMOXICILLIN, AMYLASE, CLINDAMYCIN, TRICOR, GABAPENTIN, PREVACID, CREON, MORPHINE, PROTONIX, PRAVASTATIN, PROTEASE, CRESTOR, SIMVASTATIN, ULTRAM. Most of these she has had side effects as opposed to true allergy. PHYSICAL EXAMINATION: Vital signs on presentation temp 99.5, pulse 98, respiration 18, blood pressure 155/71, pulse ox 100% on room air. GENERAL APPEARANCE: Average built, sitting up somewhat anxious-appearing. Eyes: Pupils equal. Conjunctivae normal. HEENT: External appearance of nose and ears. Oral cavity normal. Neck JVD not raised. Mass not palpable. Respiratory effort normal. Lungs are clear. Cardiovascular: 1st and 2nd sounds normal. Minimal edema. ABDOMEN: Soft, nontender. Liver and spleen not palpable. Lymphatics: No lymph nodes palpable in the neck and axilla. PSYCHIATRY: Alert and oriented x3. Mood and affect anxious-appearing. Neurological: Pupils equal. Cranial nerves grossly intact. Power grossly intact. The patient has got hyperesthesia in the lower extremity from mid diallo down to the feet. The patient distal pulses are palpable. The patient also got an essential tremor. Musculoskeletal: Evidence of osteoarthritis especially hands and knees. INVESTIGATIONS: White count 7.8, hemoglobin 11.8, potassium 4.4, BUN 34, creatinine 1.7, bicarb is 19. UA positive for leukocyte esterase WBC and bacteria. ASSESSMENT: 1. Acute uncomplicated cystitis with systemic manifestations. 2. Painful peripheral neuropathy idiopathic. 3. Gastroesophageal reflux disease. 4. Essential hypertension. 5. Hypothyroidism. 6. Renal failure could be prerenal due to check chronicity. 7. Metabolic acidosis from renal failure. 8. Essential tremor. PLAN: Will start the patient on sodium bicarb tablets. Discontinue the patient's Lasix. I started the patient on lactated Ringer's. Check patient's LV function. For the neuropathy, we will add Neurontin at night. The patient also will be given IV antibiotics. For patient's blood pressure we will add low dose of beta eusebia. Copy to Dr. Mann. MMOTTOL / IJN: [id number] /
[2018-03-30 07:51] LABS: Basophils % (A) 0 %; Eosinophils # (A) 0.1 k/uL (0-0.7); Eosinophils % (A) 2 %; HCT 30.5 % (34.0-46.0); Lymphocytes # (A) 1.4 k/uL (1.0-4.8); Lymphocytes % (A) 28 %; MCH 30.6 pg (25.0-35.0); MCHC 32.4 g/dL (31.0-37.0); MCV 94.6 fL (80.0-100.0); Mean Platelet Volume 7.2; Monocytes # (A) 0.4 k/uL (0-1.0); Monocytes % (A) 8 %; Neutrophils % (A) 59 %; Platelet Count 242 k/uL (150-450); RBC 3.22 m/uL (3.80-5.40); RDW 13.1 % (11.5-15.5)
[2018-03-30 07:55] LABS: HGB 9.9 gm/dL (11.4-16.0)
[2018-03-30 08:03] LABS: Calcium 8.7 mg/dL (8.4-10.2); Potassium 3.8 mmol/L (3.5-5.1)
--- NOTE | 2018-03-30 09:58 | US ---
EXAMINATION TYPE: US renals and bladder DATE OF EXAM: 03/30/2018 COMPARISON: NONE CLINICAL HISTORY: renal failure. EXAM MEASUREMENTS: Right Kidney: 10.1 x 5.3 x 4.2 cm Left Kidney: 9.4 x 4.5 x 6.3 cm Post Void Residual Volume: not measured for inpatient Right Kidney: No hydronephrosis or masses seen Left Kidney: mid cortex hyperechoic oval, solid mass is noted = 0.6 x 0.4 x 0.4cm and may be angiomyo lipoma. Bladder: well distended Bilateral Jets seen: only right jet seen after 3 minute observation Normal Post Void Residual: not assessed on inpatient Cortical medullary differentiation is maintained. Some mild cortical thickening present on the right. 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 No hydronephrosis.
[2018-03-30] MEDS: CITALOPRAM HYDROBROMIDE 20 MG TAB PO SCH ×2 (10:23→21:38)
[2018-03-30] MEDS: FLUTICASONE 50MCG/SPRAY NASAL 16GM EA NOSTRIL SCH (10:23)
[2018-03-30] MEDS: MONTELUKAST 10 MG TAB PO SCH (10:25)
[2018-03-30 12:06] LABS: Glucose,Whole Blood 105 mg/dL (75-99)
--- NOTE | 2018-03-30 14:41 | P.CRDCN ---
History of Present Illness History of present illness: Mrs. Gutierrez is a pleaeant 77-year-old female past medical history significant for dyslipidemia, gastroesophageal reflux disease, fibromyalgia, anxiety, memory loss and return arthritis. She denies history of coronary artery disease. She follows with Dr. Singh. We've been asked to see her in consultation per patient request. She presents to the hospital yesterday with complaints of weakness and altered mental status. She was diagnosed with a UTI and is receiving antibiotics. She saw Dr. Singh in February of this year to establish care and he has performed an MACRINA, which was normal; an echocardiogram which revealed preserved LV systolic function with EF 55% and mild MR; carotid duplex which revealed 16-49% stenosis bilaterally and she is schedule for a stress test. At the time of my exam she is resting comfortably in bed in no acute distress. She denies symptoms of chest pain, shortness of breath, dizziness, palpitations, nausea, vomiting or diaphoresis. EKG on arrival reveals sinus mechanism with no acute ST or T-wave abnormalities. Chest x-ray is negative for an acute cardiopulmonary process. Laboratory data reviewed, hemoglobin 9.9 down from 11.8 on admission, platelets 242, sodium 143, potassium 3.8, magnesium 2.1, creatinine 0.81, cardiac enzymes negative 1, TSH 2.89, LDL 125, HDL 51, triglycerides 81, total cholesterol 192. Current cardiac medications include Lasix 20 mg twice a day for chronic lower extremity edema. She is intolerant to statins secondary to muscle aches. Review of Systems At the time of my exam: CONSTITUTIONAL: Denies fever. Denies chills. EYES: Denies blurred vision. Denies vision changes. Denies eye pain. EARS, NOSE, MOUTH & THROAT: Denies headache. Denies sore throat. Denies ear pain. CARDIOVASCULAR: Denies chest pain. Denies shortness of breath. Denies orthopnea. Denies PND. Denies palpitations. RESPIRATORY: Denies cough. GASTROINTESTINAL: Denies abdominal pain. Denies diarrhea. Denies constipation. Denies nausea. Denies vomiting. MUSCULOSKELETAL: Denies myalgias. INTEGUMENTARY: Denies pruitis. Denies rash. NEUROLOGIC: Denies numbness. Denies tingling. Denies weakness. PSYCHIATRIC: Denies anxiety. Denies depression. ENDOCRINE: Denies fatigue. Denies weight change. Denies polydipsia. Denies polyurina. GENITOURINARY: Denies burning, hematuria or urgency with micturation. HEMATOLOGIC: Denies history of anemia. Denies bleeding. Past Medical History Past Medical History: Fibromyalgia, GERD/Reflux, Hyperlipidemia, Rheumatoid Arthritis (RA), Thyroid Disorder Additional Past Medical History / Comment(s): anxiety, neck, "memory loss", degenerative disk disease, hearing loss, fibromyalgia, dysphagia, hypothyroid History of Any Multi-Drug Resistant Organisms: None Reported Past Surgical History: Back Surgery Past Anesthesia/Blood Transfusion Reactions: No Reported Reaction Past Psychological History: Anxiety Smoking Status: Never smoker Past Alcohol Use History: Occasional Past Drug Use History: None Reported - Past Family History Mother Additional Family Medical History / Comment(s): ulcerated legs Father Additional Family Medical History / Comment(s): ulcerated legs Medications and Allergies Home Medications Medication Instructions Recorded Confirmed Type ALPRAZolam [Xanax] 0.5 mg PO BID PRN 01/15/17 03/29/18 History Baclofen [Lioresal] 10 mg PO TID PRN 01/15/17 03/29/18 History Cetirizine HCl [Zyrtec] 10 mg PO DAILY PRN 01/15/17 03/29/18 History Cholecalciferol [Vitamin D3] 1,000 unit PO DAILY 01/15/17 03/29/18 History Citalopram Hydrobromide [CeleXA] 20 mg PO QAM 01/15/17 03/29/18 History Citalopram Hydrobromide [CeleXA] 40 mg PO HS 01/15/17 03/29/18 History Famotidine [Pepcid] 40 mg PO HS 01/15/17 03/29/18 History Fluticasone Nasal [place] [Flonase 1 spr EA NOSTRIL BID 01/15/17 03/29/18 History Nasal [place]] Levothyroxine Sodium [Synthroid] 88 mcg PO QAM 01/15/17 03/29/18 History Polyethylene Glycol 3350 [Miralax] 17 gm PO BID PRN 01/15/17 03/29/18 History Acetaminophen [Tylenol] 650 mg PO Q6H PRN 03/29/18 03/29/18 History Furosemide [Lasix] 20 mg PO BID 03/29/18 03/29/18 History Montelukast [Singulair] 10 mg PO DAILY 03/29/18 03/29/18 History Olopatadine HCl [Pazeo] 1 drop BOTH EYES DAILY 03/29/18 03/29/18 History guaiFENesin [Mucinex] 600 mg PO BID PRN 03/29/18 03/29/18 History traMADol HCL [Ultram] 50 mg PO Q12H PRN 03/29/18 03/29/18 History Allergies Allergy/AdvReac Type Severity Reaction Status Date / Time amoxicillin Allergy Anaphylaxis Verified 03/29/18 17:48 amylase [From Creon] AdvReac Constipatio Verified 03/29/18 17:48 n clindamycin [From Cleocin] AdvReac Constipatio Verified 03/29/18 17:48 n fenofibrate [From Tricor] AdvReac Constipatio Verified 03/29/18 17:48 n gabapentin AdvReac Vertigo Verified 03/29/18 17:48 lansoprazole [From Prevacid] AdvReac Diarrhea Verified 03/29/18 17:48 lipase [From Creon] AdvReac Constipatio Verified 03/29/18 17:48 n morphine AdvReac Nausea & Verified 03/29/18 17:48 Vomiting pantoprazole [From Protonix] AdvReac Constipatio Verified 03/29/18 17:48 n pravastatin AdvReac muscle pain Verified 03/29/18 17:48 protease [From Creon] AdvReac Constipatio Verified 03/29/18 17:48 n rosuvastatin [From Crestor] AdvReac Muscle Pain Verified 03/29/18 17:48 simvastatin AdvReac muscle pain Verified 03/29/18 17:48 tramadol [From Ultram] AdvReac Constipatio Verified 03/29/18 17:48 n Physical Exam Vitals: Vital Signs Temp Pulse Pulse Resp BP BP Pulse Ox 03/30/18 12:00 99.1 F 80 18 128/65 97 03/30/18 08:00 97.5 F L 70 16 113/51 97 03/30/18 04:00 97.2 F L 67 17 119/50 98 03/30/18 00:00 97 F L 74 17 122/58 97 05/19/18 23:32 95 03/29/18 20:00 97.8 F 82 18 138/83 97 03/29/18 18:55 78 16 146/51 98 03/29/18 18:41 97.8 F 82 19 138/83 97 03/29/18 17:32 89 18 150/67 98 Intake and Output 03/29/18 03/30/18 03/30/18 22:59 06:59 14:59 Intake Total 500 200 Output Total 300 Balance 500 -300 200 Intake: Intake, IV Titration 200 Amount Sodium Chloride 0.9% 1, 200 000 ml @ 100 mls/hr IV . Q10H [facility] Rx#:[id number] Oral 500 Output: Urine/Stool Mix 300 Other: Voiding Method Bedside Commode Bedside Commode # Voids 1 Weight 72.57 kg 71.4 kg Blood pressure 128/65 heart rate 88 afebrile maintaining oxygen saturation on room air GENERAL: This is a 77-year-old female in no apparent distress at the time of my examination. HEENT: Head is atraumatic, normocephalic. Pupils are equal, round. Sclerae anicteric. Conjunctivae are clear. Mucous membranes of the mouth are moist. Neck is supple. There is no jugular venous distention. No carotid bruit is heard. LUNGS: Clear to auscultation no wheezes, rales or rhonchi. No chest wall tenderness is noted on palpation or with deep breathing. HEART: Regular rate and rhythm without murmurs, rubs or gallops. S1 and S2 heard. ABDOMEN: Soft, nontender. Bowel sounds are heard. No organomegaly noted. EXTREMITIES: Trace bilateral nonpitting lower extremity peripheral edema and no calf tenderness noted. VASCULAR: Radial and dorsalis pedis pulses palpated, no evidence of clubbing. NEUROLOGIC: Patient is awake, alert and oriented x3. Results 03/30/18 07:03 03/30/18 07:03 Cardiac Enzymes 03/29/18 03/29/18 Range/Units 15:55 15:55 AST 35 (14-36) U/L CK-MB (CK-2) 4.2 H* (0.0-2.4) ng/mL Troponin I 0.020 (0.000-0.034) ng/mL Coagulation 03/29/18 Range/Units 13:55 PT 11.2 (9.0-12.0) sec APTT 24.6 (22.0-30.0) sec Lipids 03/30/18 Range/Units 07:03 Triglycerides 81 (<150) mg/dL Cholesterol 192 (<200) mg/dL HDL Cholesterol 51 (40-60) mg/dL CBC 03/30/18 Range/Units 07:03 WBC 5.0 (3.8-10.6) k/uL RBC 3.22 L (3.80-5.40) m/uL Hgb 9.9 L D (11.4-16.0) gm/dL Hct 30.5 L (34.0-46.0) % Plt Count 242 (150-450) k/uL Comprehensive Metabolic Panel 03/29/18 03/30/18 Range/Units 15:55 07:03 Sodium 143 143 (137-145) mmol/L Potassium 4.4 3.8 (3.5-5.1) mmol/L Chloride 106 110 H (98-107) mmol/L Carbon Dioxide 19 L 21 L (22-30) mmol/L BUN 34 H 21 H (7-17) mg/dL Creatinine 1.70 H 0.81 (0.52-1.04) mg/dL Glucose 105 H 94 (74-99) mg/dL Calcium 9.3 8.7 (8.4-10.2) mg/dL AST 35 (14-36) U/L ALT 34 (9-52) U/L Alkaline Phosphatase 75 (38-126) U/L Total Protein 6.4 (6.3-8.2) g/dL Albumin 4.1 (3.5-5.0) g/dL Current Medications Generic Name Dose Route Start Last Admin Trade Name Freq PRN Reason Stop Dose Admin Acetaminophen 650 mg 03/29/18 23:32 Tylenol Tab PO Q6HR PRN Mild Pain or Fever > 100.5 Alprazolam 0.5 mg 03/29/18 17:21 03/29/18 23:29 Xanax PO 0.5 mg BID PRN Administration Anxiety Alprazolam 0.25 mg 03/29/18 23:32 Xanax PO Q6HR PRN Anxiety Baclofen 5 mg 03/29/18 17:21 Lioresal PO TID PRN Muscle Spasm/Pain Calcium Carbonate/Glycine 1,000 mg 03/29/18 23:32 Tums PO Q4HR PRN Dyspepsia Ceftriaxone Sodium 1,000 mg 03/30/18 17:00 Rocephin IVP Q24H RUIZ Citalopram Hydrobromide 40 mg 03/29/18 21:00 03/29/18 22:16 Celexa PO 40 mg HS RUIZ Administration Citalopram Hydrobromide 20 mg 03/30/18 09:00 03/30/18 10:23 Celexa PO 20 mg QAM [facility] Administration Famotidine 40 mg 03/29/18 21:00 03/29/18 22:15 Pepcid PO 40 mg HS [facility] Administration Fluticasone Propionate 2 spray 03/30/18 09:00 03/30/18 10:23 Flonase Nasal [place] EA NOSTRIL 2 spray DAILY [facility] Administration Gabapentin 100 mg 03/29/18 23:16 03/30/18 00:23 Neurontin PO Not Given HS [facility] Ketotifen Fumarate 1 drops 03/30/18 09:00 Zaditor BOTH EYES DAILY [facility] Levothyroxine Sodium 88 mcg 03/30/18 06:30 03/30/18 06:19 Synthroid PO 88 mcg QAM@0630 [facility] Administration Melatonin 3 mg 03/29/18 23:32 Melatonin PO HS PRN Insomnia Metoprolol Tartrate 25 mg 03/29/18 23:30 03/30/18 10:25 Lopressor PO 25 mg BID [facility] Administration Montelukast Sodium 10 mg 03/30/18 09:00 03/30/18 10:25 Singulair PO 10 mg DAILY [facility] Administration Naloxone HCl 0.2 mg 03/29/18 23:32 Narcan IV Q2M PRN Opioid Reversal Ondansetron HCl 4 mg 03/29/18 23:32 Zofran IVP Q8HR PRN Nausea And Vomiting Polyethylene Glycol 17 gm 03/29/18 23:16 Miralax PO BID PRN Constipation Sodium Bicarbonate 325 mg 03/29/18 23:30 03/30/18 10:25 Sodium Bicarbonate Tab PO 325 mg TID [facility] Administration Tramadol HCl 50 mg 03/29/18 23:16 03/30/18 00:32 Ultram PO 50 mg Q12H PRN Administration Pain Intake and Output 03/29/18 03/30/18 03/30/18 22:59 06:59 14:59 Intake Total 500 200 Output Total 300 Balance 500 -300 200 Intake: Intake, IV Titration 200 Amount Sodium Chloride 0.9% 1, 200 000 ml @ 100 mls/hr IV . Q10H [facility] Rx#:[id number] Oral 500 Output: Urine/Stool Mix 300 Other: Voiding Method Bedside Commode Bedside Commode # Voids 1 Weight 72.57 kg 71.4 kg 03/30/18 07:03 03/30/18 07:03 Assessment and Plan Assessment: ASSESSMENT 1. Chronic lower extremity edema 2. Urinary tract infection PLAN We will not repeat a 2-D echo on this admission since she had been in the office recently which revealed preserved left ventricular systolic function with ejection fraction 55%. From a cardiac perspective we recommend continuing ongoing medical therapy. Follow-up with Dr. Singh upon discharge. Thank you kindly for this consultation. Please feel free to call with further questions or concerns. Nurse Practitioner note has been reviewed, I agree with a documented findings and plan of care. Patient was seen and examined.
[2018-03-30] MEDS: KETOTIFEN 0.025% OPHTH DROPS 5 ML BTL BOTH EYES SCH (15:18)
[2018-03-30 17:06] LABS: Glucose,Whole Blood 104 mg/dL (75-99)
[2018-03-30] MEDS: cefTRIAXone IN SWFI 1,000 MG/10 ML SYRINGE IVP SCH (18:45)
--- NOTE | 2018-03-30 19:12 | P.CNNES ---
History of Present Illness Consult date: 03/30/18 Requesting physician: Joey Marquez Reason for Consult: TIA History of Present Illness: Patient is a pleasant 77-year-old female who is being evaluated by the neurology service today on 03/30/2018 per the request of Dr. Marquez for TIA. Patient has medical history of hypertension, hypothyroid, anxiety, GERD, and fibromyalgia. Patient states over the last few days she has been feeling increasingly weak with a decreased appetite. Patient denies any fever. Patient states she was having a bout of confusion and family asked that she be seen for further evaluation and [facility] emergency room. Computed tomography scan of the brain showed no acute intracranial abnormality. Patient was found to have urinary tract infection and was given IV ceftriaxone in the emergency room. Patient had lab work done which showed elevated BUN of 34 and elevated creatinine of 1.7. Patient also had elevated total creatinine kinase of 305 and elevated CK-MB of 4.2. Cardiology was consulted. Patient denies history of CVA or TIA. Patient states she has been having leg pain in the past and is being worked up in the outpatient setting for vascular disease by Dr. Singh. Patient states she did have a vascular study done by Dr. Dsouza and she reports her circulation was satisfactory. At the time of my evaluation, patient states she feels back to baseline and she appears to be in no acute distress. Review of Systems REVIEW OF SYSTEMS: Otherwise unremarkable and noncontributory. Past Medical History Past Medical History: Fibromyalgia, GERD/Reflux, Hyperlipidemia, Rheumatoid Arthritis (RA), Thyroid Disorder Additional Past Medical History / Comment(s): anxiety, neck, "memory loss", degenerative disk disease, hearing loss, fibromyalgia, dysphagia, hypothyroid History of Any Multi-Drug Resistant Organisms: None Reported Past Surgical History: Back Surgery Past Anesthesia/Blood Transfusion Reactions: No Reported Reaction Past Psychological History: Anxiety Smoking Status: Never smoker Past Alcohol Use History: Occasional Past Drug Use History: None Reported - Past Family History Mother Additional Family Medical History / Comment(s): ulcerated legs Father Additional Family Medical History / Comment(s): ulcerated legs Medications and Allergies Home Medications Medication Instructions Recorded Confirmed Type ALPRAZolam [Xanax] 0.5 mg PO BID PRN 01/15/17 03/29/18 History Baclofen [Lioresal] 10 mg PO TID PRN 01/15/17 03/29/18 History Cetirizine HCl [Zyrtec] 10 mg PO DAILY PRN 01/15/17 03/29/18 History Cholecalciferol [Vitamin D3] 1,000 unit PO DAILY 01/15/17 03/29/18 History Citalopram Hydrobromide [CeleXA] 20 mg PO QAM 01/15/17 03/29/18 History Citalopram Hydrobromide [CeleXA] 40 mg PO HS 01/15/17 03/29/18 History Famotidine [Pepcid] 40 mg PO HS 01/15/17 03/29/18 History Fluticasone Nasal [place] [Flonase 1 spr EA NOSTRIL BID 01/15/17 03/29/18 History Nasal [place]] Levothyroxine Sodium [Synthroid] 88 mcg PO QAM 01/15/17 03/29/18 History Polyethylene Glycol 3350 [Miralax] 17 gm PO BID PRN 01/15/17 03/29/18 History Acetaminophen [Tylenol] 650 mg PO Q6H PRN 03/29/18 03/29/18 History Furosemide [Lasix] 20 mg PO BID 03/29/18 03/29/18 History Montelukast [Singulair] 10 mg PO DAILY 03/29/18 03/29/18 History Olopatadine HCl [Pazeo] 1 drop BOTH EYES DAILY 03/29/18 03/29/18 History guaiFENesin [Mucinex] 600 mg PO BID PRN 03/29/18 03/29/18 History traMADol HCL [Ultram] 50 mg PO Q12H PRN 03/29/18 03/29/18 History Allergies Allergy/AdvReac Type Severity Reaction Status Date / Time amoxicillin Allergy Anaphylaxis Verified 03/29/18 17:48 amylase [From Creon] AdvReac Constipatio Verified 03/29/18 17:48 n clindamycin [From Cleocin] AdvReac Constipatio Verified 03/29/18 17:48 n fenofibrate [From Tricor] AdvReac Constipatio Verified 03/29/18 17:48 n gabapentin AdvReac Vertigo Verified 03/29/18 17:48 lansoprazole [From Prevacid] AdvReac Diarrhea Verified 03/29/18 17:48 lipase [From Creon] AdvReac Constipatio Verified 03/29/18 17:48 n morphine AdvReac Nausea & Verified 03/29/18 17:48 Vomiting pantoprazole [From Protonix] AdvReac Constipatio Verified 03/29/18 17:48 n pravastatin AdvReac muscle pain Verified 03/29/18 17:48 protease [From Creon] AdvReac Constipatio Verified 03/29/18 17:48 n rosuvastatin [From Crestor] AdvReac Muscle Pain Verified 03/29/18 17:48 simvastatin AdvReac muscle pain Verified 03/29/18 17:48 tramadol [From Ultram] AdvReac Constipatio Verified 03/29/18 17:48 n Physical Examination - Vital Signs Vital Signs: Vital Signs Temp Pulse Resp BP Pulse Ox 03/30/18 15:21 98.5 F 63 16 124/62 97 03/30/18 12:00 99.1 F 80 18 128/65 97 03/30/18 08:00 97.5 F L 70 16 113/51 97 03/30/18 04:00 97.2 F L 67 17 119/50 98 03/30/18 00:00 97 F L 74 17 122/58 97 03/29/18 23:32 95 03/29/18 20:00 97.8 F 82 18 138/83 97 Intake and Output 03/30/18 03/30/18 03/30/18 06:59 14:59 22:59 Intake Total 200 Output Total 300 Balance -300 200 Intake: Intake, IV Titration 200 Amount Sodium Chloride 0.9% 1, 200 000 ml @ 100 mls/hr IV . Q10H [facility] Rx#:[id number] Output: Urine/Stool Mix 300 Other: Voiding Method Bedside Commode Bedside Commode # Voids 1 Weight 71.4 kg PHYSICAL EXAM: GENERAL APPEARANCE: Patient is a well-developed, female who appears to be in no acute distress. HEENT: Normocephalic, atraumatic, no facial asymmetry is seen. Neck is supple with no masses felt. CARDIOVASCULAR: Regular rate and rhythm. ABDOMEN: Nontender, nondistended. EXTREMITIES: Show no edema or clubbing. NEUROLOGICAL EXAM: Patient is awake, alert, and oriented 3. Speech and then which are normal. Strength is full in all 4 extremities. Sensory exam to light touch is normal in all 4 extremities. No facial asymmetry is seen on cranial nerve testing. No pronator drift. Mild essential tremors noted on exam. No seizure-like activity noted. Results - Laboratory Findings CBC and BMP: 03/30/18 07:03 03/30/18 07:03 Abnormal Lab Findings: Abnormal Labs 03/29/18 03/29/18 03/29/18 13:55 13:55 14:19 RBC 3.77 L Hgb Hct Lymphocytes # 0.6 L INR 1.2 H Chloride Carbon Dioxide BUN Creatinine Glucose POC Glucose (mg/dL) 133 H Total Creatine Kinase CK-MB (CK-2) LDL Cholesterol, Calc Urine Appearance Urine Protein Urine Ketones Urine Blood Urine Bilirubin Ur Leukocyte Esterase Urine RBC Urine WBC Urine Bacteria Hyaline Casts Urine Mucus U Benzodiazepines Scrn 03/29/18 03/29/18 03/29/18 14:29 15:55 15:55 RBC Hgb Hct Lymphocytes # INR Chloride Carbon Dioxide 19 L BUN 34 H Creatinine 1.70 H Glucose 105 H POC Glucose (mg/dL) Total Creatine Kinase 305 H CK-MB (CK-2) 4.2 H* LDL Cholesterol, Calc Urine Appearance Cloudy H Urine Protein 1+ H Urine Ketones 1+ H Urine Blood Small H Urine Bilirubin 1+ H Ur Leukocyte Esterase Large H Urine RBC 8 H Urine WBC 114 H Urine Bacteria Few H Hyaline Casts 257 H Urine Mucus Few H U Benzodiazepines Scrn Detected H 03/29/18 03/30/18 03/30/18 20:13 07:03 07:03 RBC 3.22 L Hgb 9.9 L D Hct 30.5 L Lymphocytes # INR Chloride 110 H Carbon Dioxide 21 L BUN 21 H Creatinine Glucose POC Glucose (mg/dL) 124 H Total Creatine Kinase CK-MB (CK-2) LDL Cholesterol, Calc 125 H Urine Appearance Urine Protein Urine Ketones Urine Blood Urine Bilirubin Ur Leukocyte Esterase Urine RBC Urine WBC Urine Bacteria Hyaline Casts Urine Mucus U Benzodiazepines Scrn 03/30/18 03/30/18 11:55 16:56 RBC Hgb Hct Lymphocytes # INR Chloride Carbon Dioxide BUN Creatinine Glucose POC Glucose (mg/dL) 105 H 104 H Total Creatine Kinase CK-MB (CK-2) LDL Cholesterol, Calc Urine Appearance Urine Protein Urine Ketones Urine Blood Urine Bilirubin Ur Leukocyte Esterase Urine RBC Urine WBC Urine Bacteria Hyaline Casts Urine Mucus U Benzodiazepines Scrn Assessment and Plan Plan: Impression: 1. TIA 2. Peripheral neuropathy 3. Hypertension 4. Renal insufficiency 5. Essential tremor Recommendations: It does appear patient may have had a transient ischemic attack with transient episode of confusion. Patient's confusion has since resolved. As mentioned above, computed tomography scan of the brain showed no acute intracranial abnormality. I will order an EEG, fasting lipid panel, and serum homocysteine level. I will order carotid Dopplers. Cardiology consult noted. Continue current medical workup. As for her lower extremity numbness and tingling she is being followed by vascular as an outpatient. I will start her on low-dose aspirin as she was not on aspirin in the home setting. Continue neurological checks. I will continue to follow with you. Further recommendations to follow. Thank you for allowing me to participate in the care of your patient. Feel free to call with any questions or concerns. I performed an examination of the patient and discussed the management with the [employer]. I have reviewed the [employer] notes and agree with the findings and plan of care.
[2018-03-30 21:25] LABS: Glucose,Whole Blood 110 mg/dL (75-99)
[2018-03-30] MEDS: ALPRAZolam 0.5 MG TAB PO PRN (21:38)
[2018-03-30] MEDS: ASPIRIN 81 MG PO SCH (21:38)
[2018-03-30] MEDS: FAMOTIDINE 20 MG TAB PO SCH (21:39)
[2018-03-31] MEDS: LEVOTHYROXINE 88 MCG TAB PO SCH (06:32)
[2018-03-31] MEDS: ASPIRIN 81 MG PO SCH (08:39)
[2018-03-31] MEDS: CITALOPRAM HYDROBROMIDE 20 MG TAB PO SCH ×2 (08:40→21:28)
[2018-03-31] MEDS: KETOTIFEN 0.025% OPHTH DROPS 5 ML BTL BOTH EYES SCH (08:40)
[2018-03-31] MEDS: FLUTICASONE 50MCG/SPRAY NASAL 16GM EA NOSTRIL SCH (08:40)
[2018-03-31] MEDS: METOPROLOL TARTRATE 25 MG TAB PO SCH ×2 (08:40→21:27)
[2018-03-31] MEDS: MONTELUKAST 10 MG TAB PO SCH (08:41)
[2018-03-31] MEDS: SODIUM BICARBONATE TAB 650 MG TAB PO SCH ×3 (08:41→21:28)
--- NOTE | 2018-03-31 16:28 | P.PN ---
Subjective Progress Note Date: 03/31/18 Patient is a pleasant 77-year-old female who is being followed by the neurology service for TIA/CVA. Patient has medical history of hypertension, hypothyroid, anxiety, GERD, and fibromyalgia. Patient came to [facility] for evaluation due to increasing confusion and weakness over the past few days. Patient denies fever. She states she follows with Dr. Dsouza and Dr. Singh for testing for peripheral vascular disease. Patient denies any history of TIA or CVA. Patient is more confused today. Patient recognizes she is confused and is opting not to answer questions. Computed tomography scan of the brain showed no acute intracranial abnormality. MRI is ordered. EEG is ordered. Cardiology consult recommending medical therapy. At the time of my evaluation, patient is resting comfortably in bed and appears to be in no acute distress. Patient does appear to be more confused today than yesterday. Objective - Vital Signs Vital signs: Vital Signs Temp 98.7 F 03/31/18 08:44 Pulse 75 03/31/18 08:44 Resp 18 03/31/18 08:44 BP 152/77 03/31/18 08:44 Pulse Ox 95 03/31/18 08:44 Intake & Output 03/30/18 03/31/18 03/31/18 18:59 06:59 18:59 Intake Total 200 1580 120 Balance 200 1580 120 Weight 76.6 kg Intake: Intake, IV Titration 200 1100 Amount Sodium Chloride 0.9% 1, 1100 000 ml @ 100 mls/hr IV . Q10H ONE Rx#:[id number] Sodium Chloride 0.9% 1, 200 000 ml @ 100 mls/hr IV . Q10H RUIZ Rx#:[id number] Oral 480 120 Other: Voiding Method Bedside Commode Bedside Commode Toilet # Voids 4 1 # Bowel Movements 1 0 - Exam PHYSICAL EXAM: GENERAL APPEARANCE: Patient is a well-developed, female who appears to be in no acute distress. HEENT: Normocephalic, atraumatic, no facial asymmetry is seen. Neck is supple with no masses felt. CARDIOVASCULAR: Regular rate and rhythm. ABDOMEN: Nontender, nondistended. EXTREMITIES: Show no edema or clubbing. NEUROLOGICAL EXAM: Patient is awake, alert, and conversant.. Patient is oriented to self only. Speech and language are normal. Strength is full in all 4 extremities. Sensory exam to light touch is normal in all 4 extremities. No facial asymmetry is seen on cranial nerve testing. No seizures witnessed or reported. Mild essential tremors noted on exam. - Labs CBC & Chem 7: 03/30/18 07:03 03/30/18 07:03 Labs: Abnormal Lab Results - Last 24 Hours (Table) 03/30/18 03/30/18 Range/Units 16:56 21:13 POC Glucose (mg/dL) 104 H 110 H (75-99) mg/dL Microbiology - Last 24 Hours (Table) 03/29/18 13:55 Blood Culture - Preliminary Blood No Growth after 24 hours Assessment and Plan Plan: Impression: 1. TIA 2. Peripheral neuropathy 3. Hypertension 4. Renal insufficiency 5. Essential tremor Recommendations: It does appear patient may have had a transient ischemic attack with transient episode of confusion. Patient's confusion seems to have been resolved yesterday, however, she is more confused today. MRI of the brain was ordered. As you recall, computed tomography scan of the brain did not show any acute abnormality. No lateralizing weakness or obvious facial asymmetry noted. EEG was ordered. Her fasting lipid panel is within normal limits except for high LDL of 125. I recommend low-dose statin. Serum homocysteine level is pending. I will order carotid Dopplers. Cardiology consult noted. Continue current medical management. As for her lower extremity numbness and tingling she is being followed by vascular as an outpatient. Continue low-dose aspirin 81 mg by mouth daily. Continue neurological checks. I will continue to follow with you. Further recommendations to follow. I performed an examination of the patient and discussed the management with the OUTBOUND SALES PROFESSIONAL. I have reviewed the OUTBOUND SALES PROFESSIONAL notes and agree with the findings and plan of care.
--- NOTE | 2018-03-31 17:09 | P.PN ---
Subjective Progress Note Date: 03/31/18 Principal diagnosis: Encephalopathy is a 77-year-old patient with past medical history of fibromyalgia GERD hypertension hypothyroidism and anxiety admitted to Dr. Marquez has been transferred to us service last night. She was initially admitted for weakness and tiredness. Today the patient is lying in bed, she is very confused. She is oriented to name but not place and time. All she says is that she wants to go home and does not want me to touch her or talk with her. As per the discussion with the nursing staff, the patient has been doing this for the past couple of days. The renal case manager did have a conversation with her sister who is her power of senior trial attorney. As per the discussion with her sister, the patient has been living alone and called her couple of days back stating that she was not feeling well. So her sister called the neighbors who went and checked on her. The patient house was found to be disorganized. And she was brought into the ED. Patient is currently being treated for a UTI with ceftriaxone and the rest of her home medications. She has been evaluated by neurology and cardiology. Patient had a CAT scan of the head showing no acute intracranial process. As per the progress notes the patient also has bilateral leg pain and is undergoing vascular studies outpatient. Review of systems: Could not be done as the patient is not willing to answer any of my questions. All she says is that she wants to go home and does not want anyone to touch her. Objective - Vital Signs Vital signs: Vital Signs Temp 98.7 F 03/31/18 08:44 Pulse 75 03/31/18 08:44 Resp 18 03/31/18 08:44 BP 152/77 03/31/18 08:44 Pulse Ox 95 03/31/18 08:44 Intake & Output 03/30/18 03/31/18 03/31/18 18:59 06:59 18:59 Intake Total 200 1580 120 Balance 200 1580 120 Weight 76.6 kg Intake: Intake, IV Titration 200 1100 Amount Sodium Chloride 0.9% 1, 1100 000 ml @ 100 mls/hr IV . Q10H ONE Rx#:[id number] Sodium Chloride 0.9% 1, 200 000 ml @ 100 mls/hr IV . Q10H RUIZ Rx#:[id number] Oral 480 120 Other: Voiding Method Bedside Commode Bedside Commode Toilet # Voids 4 1 # Bowel Movements 1 0 - Exam A full physical exam could not be completed -Patient keeps push me away. She does not want to be touched. She is confused. But on gross examination she does not appear to be in any acute distress. Heart S1 and S2 heard no murmurs. Respiratory bilateral breath sounds are positive no wheezes or crackles. Abdomen is soft to touch no guarding or rigidity. Lower extremities show no edema. - Labs CBC & Chem 7: 03/30/18 07:03 03/30/18 07:03 Labs: Abnormal Lab Results - Last 24 Hours (Table) 03/30/18 03/30/18 Range/Units 16:56 21:13 POC Glucose (mg/dL) 104 H 110 H (75-99) mg/dL Microbiology - Last 24 Hours (Table) 03/29/18 13:55 Blood Culture - Preliminary Blood No Growth after 48 hours Assessment and Plan Assessment: Encephalopathy unclear etiology ? TIA Dementia Hypertension UTI Anemia of chronic disease GERD Fibromyalgia Thyroid disorder Peripheral neuropathy Plan: We'll continue the patient on ceftriaxone for her UTI. Ongoing workup for TIA - CAT scan of her head has been negative for any acute cranial process. Neurology recommended EEG that has been ordered. We'll continue with the rest of her home medication regimen. Overall prognosis is guarded. 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 Patient's sister has been informed and contacted. Further recommendations to follow depending on the progress of the patient.
--- NOTE | 2018-03-31 18:44 | US ---
EXAMINATION TYPE: US carotid duplex BILAT DATE OF EXAM: 03/31/2018 COMPARISON: US 2009 CLINICAL HISTORY: TIA. TIA, bilateral arm weakness EXAM MEASUREMENTS: RIGHT: Peak Systolic Velocity (PSV) cm/sec ----- Right CCA: 73.3 ----- Right ICA: 108.0 ----- Right ECA: 86.0 ICA/CCA ratio: 1.5 RIGHT: End Diastole cm/sec ----- Right CCA: 15.0 ----- Right ICA: 26.9 ----- Right ECA: 11.8 LEFT: Peak Systolic Velocity (PSV) cm/sec ----- Left CCA: 75.8 ----- Left ICA: 113.8 ----- Left ECA: 69.9 ICA/CCA ratio: 1.5 LEFT: End Diastole cm/sec ----- Left CCA: 15.0 ----- Left ICA: 27.1 ----- Left ECA: 4.5 VERTEBRALS (direction of flow): Right Vertebral: Antegrade Left Vertebral: Antegrade Rhythm: Normal Mild atherosclerotic changes, no elevated velocities, no significant stenosis. IMPRESSION: There is antegrade flow in the vertebral arteries. The images and measurements suggest l ess than 25% stenosis in both internal carotid arteries. Criteria for Assigning % of Stenosis / Diameter reduction (Estimation based on the indirect measurements of the internal carotid artery velocities (ICA PSV). 1. Normal (no stenosis)=ICA PSV < 125 cm/s: ratio < 2.0: ICA EDV<40 cm/s. 2. Less than 50% stenosis=ICA PSV < 125 cm/s: ratio < 2.0: ICA EDV<40 cm/s. 3. 50 to 69% stenosis=ICA PSV of 125 to 230 cm/s: ration 2.0 ? 4.0: ICA EDV 40-100 cm/s. 4. Greater than 70% stenosis to near occlusion= ICA PSV > 230 cm/s: ratio > 4.0: ICA EDV > 100 cm/s. 5. Near occlusion= ICA PSV velocities may be low or undetectable: variable ratio and ICA EDV. 6. Total occlusion=unable to detect flow.
[2018-03-31] MEDS: cefTRIAXone IN SWFI 1,000 MG/10 ML SYRINGE IVP SCH (18:55)
[2018-03-31] MEDS: GABAPENTIN 100 MG CAP PO SCH (21:27)
[2018-03-31] MEDS: ALPRAZolam 0.5 MG TAB PO PRN (21:27)
[2018-03-31] MEDS: FAMOTIDINE 20 MG TAB PO SCH (21:28)
[2018-04-01] MEDS: LEVOTHYROXINE 88 MCG TAB PO SCH (05:59)
[2018-04-01 06:45] LABS: Basophils % (A) 0 %; Eosinophils # (A) 0.1 k/uL (0-0.7); Eosinophils % (A) 3 %; HCT 30.5 % (34.0-46.0); Lymphocytes # (A) 1.4 k/uL (1.0-4.8); Lymphocytes % (A) 27 %; MCH 30.5 pg (25.0-35.0); MCHC 32.8 g/dL (31.0-37.0); MCV 92.8 fL (80.0-100.0); Mean Platelet Volume 7.1; Monocytes # (A) 0.3 k/uL (0-1.0); Monocytes % (A) 7 %; Neutrophils # (A) 3.1 k/uL (1.3-7.7); Neutrophils % (A) 61 %; Platelet Count 228 k/uL (150-450); RBC 3.29 m/uL (3.80-5.40); WBC 5.1 k/uL (3.8-10.6)
[2018-04-01 07:10] LABS: Anion Gap 9 mmol/L; Blood Urea Nitrogen 8 mg/dL (7-17); Calcium 8.6 mg/dL (8.4-10.2); Carbon Dioxide 23 mmol/L (22-30); Chloride 107 mmol/L (98-107); Glucose 92 mg/dL (74-99); Potassium 3.6 mmol/L (3.5-5.1); Sodium 139 mmol/L (137-145)
[2018-04-01] MEDS: CITALOPRAM HYDROBROMIDE 20 MG TAB PO SCH ×2 (09:14→23:00)
[2018-04-01] MEDS: KETOTIFEN 0.025% OPHTH DROPS 5 ML BTL BOTH EYES SCH (09:14)
[2018-04-01] MEDS: FLUTICASONE 50MCG/SPRAY NASAL 16GM EA NOSTRIL SCH (09:14)
[2018-04-01] MEDS: SODIUM BICARBONATE TAB 650 MG TAB PO SCH ×3 (09:15→22:32)
[2018-04-01] MEDS: ASPIRIN 81 MG PO SCH (09:15)
[2018-04-01] MEDS: MONTELUKAST 10 MG TAB PO SCH (09:15)
[2018-04-01] MEDS: ALPRAZolam 0.5 MG TAB PO PRN (09:15)
[2018-04-01] MEDS: METOPROLOL TARTRATE 25 MG TAB PO SCH ×2 (09:15→22:32)
[2018-04-01 09:36] VITALS: RESP 18
--- NOTE | 2018-04-01 13:04 | EEG ---
ELECTROENCEPHALOGRAM REPORT DATE OF SERVICE: 04/01/2018 REASON FOR TESTING: Altered mental status. DESCRIPTION OF THE PROCEDURE: This EEG was performed using a 21 channel digital electroencephalograph, following international 10-20 system. DESCRIPTION OF THE RECORDING: From the beginning of the tracing, and with patient's eyes closed, the background rhythm was mostly consisting of 8 Hz alpha frequency in the posterior occipital leads. No obvious asymmetry is seen. Photic stimulation was performed with a minimal driving response seen. No pathological waves were elicited. Lead artifacts and muscle artifacts are seen. Hyperventilation was not performed. The patient remains awake throughout the tracing. No epileptiform discharges were seen. Her EKG lead showed a regular rate and rhythm. INTERPRETATION: This awake EEG can be considered within normal limits. There was no asymmetry seen. No epileptiform discharges were noticed. The absence of epileptiform discharges does not rule out the diagnosis of epilepsy; therefore clinical correlation is recommended. MMOTTOL / IJHarjit: [id number] /
--- NOTE | 2018-04-01 13:28 | MR ---
MR brain without contrast HISTORY: Cerebral vascular accident Multiplanar multisequence imaging through the brain Correlation to CT brain 03/29/2018 There is a small focus of restricted diffusion in the left frontal brain which show some correspondin g hyperintensity on inversion recovery and T2-weighted sequences. No hemorrhage or hydrocephalus is e vident. There is a focus of hyperintensity in the left frontal brain more anteriorly with some serpig inous cortically based low signal on T2-weighted sequences which may represent remote infarct with lo bran hemosiderin deposition, axial images 23, 24 and 25. Periventricular and subcortical white matter shows scattered hyperintensities on inversion recovery and T2-weighted sequences, approximately 30 le sions are present. There is no significant extra-axial fluid collection. There are normal vascular fl ow voids. Orbits show symmetric appearance. Mild mucosal signal seen in the maxillary sinuses. The corpus callosum, pituitary, cervical medullary junction, cerebellopontine angles are unremarkable . IMPRESSION: Small left frontal cerebral vascular accident is subacute, there is evidence of chronic s ubacute infarct in the left frontal lobe as described. Additional findings above.
--- NOTE | 2018-04-01 15:19 | P.DS ---
Providers Date of admission: 03/29/18 17:14 Attending physician: Audrey Nieves Consults: 03/29/18 17:19 Consult Physician Routine Consulting Provider: Venu Meyer Consult Reason/Comments: Altered mental status, TIA Do you want consulting provider notified?: Yes 03/29/18 17:47 Consult Physician Routine Consulting Provider: Pedro Singh Consult Reason/Comments: Patient request Do you want consulting provider notified?: Yes Primary care physician: Jaydon Pryormley [facility] Course: 77-year-old female admitted for possible TIA or a stroke. Patient came in with confusion is being treated for urinary tract infection patient urine dip does look abnormal but patient doesn't have any symptoms of UTI patient is intravascularly volume repleted with creatinine of 1.7 of around 0.8 patient was on Lasix Chronic venous insufficiency. Lasix will be can discuss reviewed upon discharge and patient will be started on compression socks. Patient does have a new stroke in the left frontal lobe. Ischemic in nature. Patient will be started on aspirin and a statin. Patient has lot of chronic infarcts in the left frontal lobe and parietal lobe. 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 Patient is alert oriented 2. I do not believe we need to continue that medics patient received 3 days of antibiotics and I do not believe patient has urinary tract infection patient has a symptomatically bacteriuria. Patient is on Xanax which is being tapered down I will change his Xanax to twice a day from 4 times a day if need to be discontinued eventually tramadol will be discontinued and patient will be started on Tylenol for pain and baclofen was discontinued as well. Polypharmacy should be avoided as much as we can. If patient has agitation episodes we can use low-dose antipsychotics like Seroquel as an outpatient at nighttime. PHYSICAL EXAMINATION: GENERAL: The patient is alert and oriented x2, not in any acute distress. Well developed, well nourished. HEENT: Pupils are round and equally reacting to light. EOMI. No scleral icterus. No conjunctival pallor. Normocephalic, atraumatic. No pharyngeal erythema. No thyromegaly. CARDIOVASCULAR: S1 and S2 present. No murmurs, rubs, or gallops. PULMONARY: Chest is clear to auscultation, no wheezing or crackles. ABDOMEN: Soft, nontender, nondistended, normoactive bowel sounds. No palpable organomegaly. MUSCULOSKELETAL: No joint swelling or deformity. EXTREMITIES: No cyanosis, clubbing, or pedal edema. NEUROLOGICAL: Gross neurological examination did not reveal any focal deficits. SKIN: No rashes. -Altered mental status: Secondary to stroke in the left frontal area. -Possible vascular dementia -Anxiety disorder -Hypertension -Asymptomatic bacteriuria no urinary tract infection -Possibility of metabolic encephalopathy due to intravascular volume depletion or dehydration which improved now -Fibromyalgia Hypertension hypothyroidism -Peripheral neuropathy Patient Condition at Discharge: Stable Plan - Discharge Summary Discharge Rx Participant: No New Discharge Prescriptions: New Acetaminophen Tab [Tylenol] 650 mg PO Q6HR PRN tab PRN Reason: Mild Pain Or Fever > 100.5 Aspirin 81 mg PO DAILY chew Atorvastatin [Lipitor] 40 mg PO HS #30 tablet Metoprolol Tartrate [Lopressor] 25 mg PO BID #0 tab Continue Fluticasone Nasal Primrose [Flonase Nasal Primrose] 1 spr EA NOSTRIL BID Levothyroxine Sodium [Synthroid] 88 mcg PO QAM Cholecalciferol [Vitamin D3] 1,000 unit PO DAILY Famotidine [Pepcid] 40 mg PO HS Citalopram Hydrobromide [CeleXA] 40 mg PO HS Citalopram Hydrobromide [CeleXA] 20 mg PO QAM Polyethylene Glycol 3350 [Miralax] 17 gm PO BID PRN PRN Reason: Constipation guaiFENesin [Mucinex] 600 mg PO BID PRN PRN Reason: Congestion Olopatadine HCl [Pazeo] 1 drop BOTH EYES DAILY Acetaminophen [Tylenol] 650 mg PO Q6H PRN PRN Reason: Pain Montelukast [Singulair] 10 mg PO DAILY ALPRAZolam [Xanax] 0.5 mg PO BID PRN #6 tab PRN Reason: Anxiety Discontinued Cetirizine HCl [Zyrtec] 10 mg PO DAILY PRN PRN Reason: Allergy Symptoms Baclofen [Lioresal] 10 mg PO TID PRN PRN Reason: Muscle Spasm/Pain traMADol HCL [Ultram] 50 mg PO Q12H PRN PRN Reason: Pain Furosemide [Lasix] 20 mg PO BID Discharge Medication List Cholecalciferol [Vitamin D3] 1,000 unit PO DAILY 01/15/17 [History] Citalopram Hydrobromide [CeleXA] 20 mg PO QAM 01/15/17 [History] Citalopram Hydrobromide [CeleXA] 40 mg PO HS 01/15/17 [History] Famotidine [Pepcid] 40 mg PO HS 01/15/17 [History] Fluticasone Nasal Primrose [Flonase Nasal Primrose] 1 spr EA NOSTRIL BID 01/15/17 [ History] Levothyroxine Sodium [Synthroid] 88 mcg PO QAM 01/15/17 [History] Polyethylene Glycol 3350 [Miralax] 17 gm PO BID PRN 01/15/17 [History] Acetaminophen [Tylenol] 650 mg PO Q6H PRN 03/29/18 [History] Montelukast [Singulair] 10 mg PO DAILY 03/29/18 [History] Olopatadine HCl [Pazeo] 1 drop BOTH EYES DAILY 03/29/18 [History] guaiFENesin [Mucinex] 600 mg PO BID PRN 03/29/18 [History] ALPRAZolam [Xanax] 0.5 mg PO BID PRN #6 tab 04/01/18 [Rx] Acetaminophen Tab [Tylenol] 650 mg PO Q6HR PRN tab 04/01/18 [Rx] Aspirin 81 mg PO DAILY chew 04/01/18 [Rx] Atorvastatin [Lipitor] 40 mg PO HS #30 tablet 04/01/18 [Rx] Metoprolol Tartrate [Lopressor] 25 mg PO BID #0 tab 04/01/18 [Rx] Follow up Appointment(s)/Referral(s): Jaydon Mann MD [Primary Care Provider] - 04/04/18 10:30 am (Saturday with [facility] CATH LAB NURSE) Venu Meyer MD [STAFF PHYSICIAN] - 1 Week Discharge Disposition: TRANSFER TO SNF/ECF
[2018-04-01] MEDS: cefTRIAXone IN SWFI 1,000 MG/10 ML SYRINGE IVP SCH (17:34)
[2018-04-01] MEDS: ALPRAZolam 0.25 MG TAB PO SCH (21:54)
[2018-04-01 22:18] VITALS: TEMP 97.8
[2018-04-01] MEDS: GABAPENTIN 100 MG CAP PO SCH (22:32)
[2018-04-01] MEDS: FAMOTIDINE 20 MG TAB PO SCH (22:59)
[2018-04-02] MEDS: LEVOTHYROXINE 88 MCG TAB PO SCH (05:53)
[2018-04-02 06:26] VITALS: BP 137/82; PULSE 55
[2018-04-02] MEDS: ALPRAZolam 0.25 MG TAB PO SCH (07:38)
[2018-04-02] MEDS: FLUTICASONE 50MCG/SPRAY NASAL 16GM EA NOSTRIL SCH (07:38)
[2018-04-02] MEDS: ASPIRIN 81 MG PO SCH (07:39)
[2018-04-02] MEDS: CITALOPRAM HYDROBROMIDE 20 MG TAB PO SCH (07:39)
[2018-04-02] MEDS: KETOTIFEN 0.025% OPHTH DROPS 5 ML BTL BOTH EYES SCH (07:39)
[2018-04-02] MEDS: MONTELUKAST 10 MG TAB PO SCH (07:41)
[2018-04-02] MEDS: METOPROLOL TARTRATE 25 MG TAB PO SCH (09:39)
[2018-04-02] MEDS: SODIUM BICARBONATE TAB 650 MG TAB PO SCH (09:40)
--- NOTE | 2018-04-02 10:22 | PN ---
PROGRESS NOTE DATE OF SERVICE: 04/01/2018 SUBJECTIVE: Mrs. Gutierrez is a pleasant 77-year-old female who is being evaluated today on 04/01/2018 by the neurology service. As you recall, the patient is being followed for transient altered mental status concerning for a transient ischemic attack. At the time of my evaluation today, she is sitting at the edge of her bed and appears to be in no acute distress. She is more awake and alert today. She denies any neurological complaints. I did review her EEG which was normal. Her MRI of the brain did show evidence of a left frontal subacute infarct. Significant small vessel ischemic changes were also seen. Her CBC today was normal except for anemia with a hemoglobin of 10.0 and hematocrit of 30%. Her basic metabolic profile was normal. PAST MEDICAL HISTORY: Fibromyalgia, gastroesophageal reflux disease, dyslipidemia, rheumatoid arthritis, hypothyroidism, anxiety disorder. OBJECTIVE: Vital signs show a temperature of 98.2, pulse 64, respiration 18, blood pressure 156/89. GENERAL APPEARANCE: The patient is a well-developed elderly female, who appears to be in no acute distress. HEENT: Normocephalic, atraumatic, no facial asymmetry is seen. Neck is supple with no masses felt. CARDIOVASCULAR: Regular rate and rhythm. ABDOMEN: Nontender, nondistended. Extremities showed no edema or clubbing. NEUROLOGICAL EXAM: The patient is alert, aware and oriented x3. Speech and language are normal. No lateralizing weakness is seen. Sensory exam was normal to light touch in all 4 extremities. No seizure-like activity is seen. Mild postural tremors are present. No facial asymmetry is noticed on cranial nerve testing. IMPRESSION: 1. Subacute ischemic stroke, left frontal lobe. 2. Altered mental status, improved. 3. Hypertension. 4. Essential tremor. 5. Dyslipidemia. RECOMMENDATION: The patient's MRI of the brain was reviewed and it did show evidence of a subacute infarct involving the left frontal lobe. This was likely causing her altered mental status. She will continue on aspirin daily. I do recommend a repeat MRI of the brain in 3 to 4 months. I also recommend treatment for her mild dyslipidemia. She does report multiple STATIN allergies. Continue the rest of your current workup and management. I will continue to follow with you as needed. MMODL / IJN: [id number] /
--- NOTE | 2018-04-05 11:12 | CDI ---
Documentation Clarification Form Date: 04/05/2018 12:00:00 AM From: KAYLIN Espinosa; Christina Jonas Cable Inspector Phone: If you have a question about this query, please contact Christina Jonas Cable Inspector at [phone] between 8am and 5pm. Admit Date: 03/29/2018 5:14:00 PM Patient Name: Michelle Gutierrez Visit Number: [id number] Discharge Date: 04/02/2018 ATTENTION: The Clinical Documentation Specialists (CDI) and [facility] Coding Staff appreciate your assistance in clarifying documentation. Please respond to the clarification below the line at the bottom and electronically sign. The CDI & [facility] Coding staff will review the response and follow-up if needed. Please note: Queries are made part of the Legal Health Record. If you have any questions, please contact the author of this message via ITS. Dr. Fuentes Yip Renal failure and renal insufficiency are documented in progress notes. History/Risk Factors: CVA, peripheral neuropathy, HTN Admission: BUN/Cr/GFR : 34, 1.70 28 Discharge: BUN/Cr/GFT: 8, 0.60, 87 In order to capture the severity of condition, please clarify if the condition signifies: Acute renal failure Tubular Necrosis Acute kidney injury Acute on chronic renal failure CKD Stage 1 GFR >90 CKD Stage 2 GFR 60-89 CKD Stage 3 GFR 30-59 CKD Stage 4 GFR 15-29 CKD Stage 5 GFR <15 Chronic renal failure/Chronic Kidney disease (CKD) please stage if known CKD Stage 1 GFR >90 CKD Stage 2 GFR 60-89 CKD Stage 3 GFR 30-59 CKD Stage 4 GFR 15-29 CKD Stage 5 GFR <15 ESRD Other, please specify No chronic kidney disease Unable to determine MTDD
== END 2018-04-02 11:00 | DRG 64 ==
LOC: EC 13:36 → 6SEL 17:14 → 5MS5E 04-01 18:10
PROVIDERS: ADMIT Internal Medicine; ATTEND Internal Medicine
DX: I63.9 Cerebral infarction, unspecified (principal); G93.41 Metabolic encephalopathy; E87.2 Acidosis; F05 Delirium due to known physiological condition; D63.8 Anemia in other chronic diseases classified elsewhere; E03.9 Hypothyroidism, unspecified; E78.5 Hyperlipidemia, unspecified; E86.0 Dehydration; F01.50 Vascular dementia, unspecified severity, without behavioral disturbance, psychotic disturbance, mood disturbance, and anxiety; F41.9 Anxiety disorder, unspecified; G25.0 Essential tremor; H91.90 Unspecified hearing loss, unspecified ear; I10 Essential (primary) hypertension; I87.2 Venous insufficiency (chronic) (peripheral); K21.9 Gastro-esophageal reflux disease without esophagitis; M06.9 Rheumatoid arthritis, unspecified; M79.7 Fibromyalgia; Z79.899 Other long term (current) drug therapy; Z79.890 Hormone replacement therapy; Z79.51 Long term (current) use of inhaled steroids; Z88.1 Allergy status to other antibiotic agents; Z88.5 Allergy status to narcotic agent; Z88.8 Allergy status to other drugs, medicaments and biological substances; G60.8 Other hereditary and idiopathic neuropathies; R29.700 NIHSS score 0
CPT/HCPCS: 36415; 70450; 70551; 71046; 76770; 80048; 80053; 80061; 80306; 81001; 82140; 82550; 82553; 83735; 84443; 84484; 85025; 85610; 85730; 87040; 93005; 93880; 95816; 96361; 96374; 99291